=== PATIENT | male | born 1935 | race Caucasian/White ===

== ENCOUNTER → 2022-07-07 13:24 | Outpatient (CLI) | payer MEDICARE, SELFPAY ==
--- NOTE | 2022-07-07 13:30 | XR_ITS ---
FINAL REPORT CLINICAL HISTORY: ankle pain FINDINGS: Left ankle Two views were obtained. There is no acute fracture or dislocation. There are mild degenerative changes. Small calcaneal spurs are identified. There is vascular calcification IMPRESSION: Degenerative and chronic appearing findings. Reviewed, Interpreted and Dictated by Montez Tucker III, MD Transcribed by Cleo Angel Authenticated and [facility]
== END ==
PROVIDERS: PCP Family Medicine; Visit Provider Family Medicine
DX: M25.572 Pain in left ankle and joints of left foot (principal)
CPT/HCPCS: 73600

== ENCOUNTER 2022-08-05 11:47 | Day surgery (SDC) | payer MEDICARE, SELFPAY ==
[2022-07-15 15:25] VITALS: BMI 25.3
[2022-08-05 13:03] VITALS: BP 176/76; PULSE 76; RESP 18; TEMP 36.4; O2SAT 97
[2022-08-05 13:33] VITALS: O2SAT 97
--- NOTE | 2022-08-05 13:34 | P.PN_ITS ---
[facility] Disclaimer: The information contained in this section may have been updated after the patient was seen, as this information can be updated by other users. Medical History Hypertension Surgical History H/O shoulder surgery History of colonoscopy Family History Mother Diabetes Brother Diabetes Sister Diabetes Social History Smoking Status: Never smoker alcohol intake: never substance use type: denies use current occupational status: retired Travel in the last 8 weeks: None household members: none housing: house lives independently: Yes marital status: education level: college correction: No caffeine: Yes special elmer needs: No agree to transfusion: No do you feel safe at home: Yes victim of physical abuse: No victim of emotional abuse: No victim of sexual abuse: No would you like helpful sources: No [facility] Anesthesia Checklist Patient Identification Patient Identification: Verbal (Name & ) Structural Data Admitted From: Home Planned Operative Procedure/s: colonoscopy Consent for Planned Operative Procedure(s) Verified: Yes Airway Assessment C-Spine Mobility Assessed: Yes TMJ Mobility Assessed: Yes Dentition: Good Dentition Neurological Assessment Level of Consciousness: Awake, Alert and Appropriate Anesthesia Plan Anesthesia Risk discussed: Yes Anesthesia Plan: Verified ASA Class: II Anesthesia Type: MAC
--- NOTE | 2022-08-05 13:54 | HMH.SCOPE ---
Procedure: Date: 08/05/22 Patient Date of :: 1935 Procedure Performed:: Screening colonoscopy Indications:: Screening for colorectal cancer Performing Provider:: Judi Calixto MD Referring Provider:: Dada Chavez MD Sedation:: Propofol Procedure:: After placing the patient in the left lateral decubitus position, the colonoscopy was gently inserted into the rectum and under direct visualization advanced to the cecum which was identified by transillumination in the right lower quadrant, identification of the ileocecal valve, appendiceal orifice, and cecal strap. Color, texture, mucosa, and anatomy of the colon were carefully examined with the scope. Findings:: Anal canal: normal Rectum: normal, internal hemorrhoids Sigmoid colon: normal without polyps or inflammatory changes, few diverticulosis Descending colon: normal without polyps or inflammatory changes Splenic flexure: normal Transverse colon: normal without polyps or inflammatory changes Hepatic flexure: normal Ascending colon: normal without polyps or inflammatory changes Cecum: normal Terminal ileum: not visualized Impression: Few sigmoid diverticulosis and internal hemorrhoids, otherwise Normal exam Recommendations:: No further screening colonoscopy recommended due to age Complications:: None Estimated blood obtained (mL): 0
[2022-08-05 13:55] VITALS: BP 103/56; PULSE 78; RESP 14; O2SAT 98
[2022-08-05 14:05] VITALS: BP 103/55; PULSE 74; RESP 14; O2SAT 94
[2022-08-05 14:15] VITALS: BP 112/68; PULSE 73; RESP 15; O2SAT 95
[2022-08-05 14:25] VITALS: BP 130/70; PULSE 75; RESP 16; TEMP 36.5; O2SAT 95
--- NOTE | 2022-08-06 08:50 | EXP.ANES.CKL ---
[facility] Disclaimer: The information contained in this section may have been updated after the patient was seen, as this information can be updated by other users. Medical History Hypertension Surgical History H/O shoulder surgery History of colonoscopy Family History Mother Diabetes Brother Diabetes Sister Diabetes Social History Smoking Status: Never smoker alcohol intake: never substance use type: denies use current occupational status: retired Travel in the last 8 weeks: None household members: none housing: house lives independently: Yes marital status: education level: college alf: No caffeine: Yes special elmer needs: No agree to transfusion: No do you feel safe at home: Yes victim of physical abuse: No victim of emotional abuse: No victim of sexual abuse: No would you like helpful sources: No [facility] Anesthesia Checklist Patient Identification Patient Identification: Verbal (Name & ) Structural Data Admitted From: Inpatient Planned Operative Procedure/s: bronchoscopy Consent for Planned Operative Procedure(s) Verified: Yes Airway Assessment C-Spine Mobility Assessed: Yes TMJ Mobility Assessed: Yes Dentition: Poor Dentition Neurological Assessment Level of Consciousness: Awake, Alert and Appropriate Anesthesia Plan Anesthesia Risk discussed: Yes Anesthesia Plan: Verified ASA Class: III Anesthesia Type: General
== END 2022-08-05 14:30 | disposition home or self-care (01) ==
PROVIDERS: PCP Family Medicine; Visit Provider Internal Medicine Gastroenterology
PROC: 0DJD8ZZ Inspection of Lower Intestinal Tract, Via Natural or Artificial Opening Endoscopic (ICD-10-PCS; CPT 45378; principal; 2022-08-05 13:30)
DX: Z12.11 Encounter for screening for malignant neoplasm of colon (principal); K64.8 Other hemorrhoids; K57.30 Diverticulosis of large intestine without perforation or abscess without bleeding; Z79.899 Other long term (current) drug therapy
CPT/HCPCS: G0105

== ENCOUNTER → 2022-11-04 13:50 | Outpatient (CLI) | payer MEDICARE, SELFPAY ==
--- NOTE | 2022-11-04 13:56 | XR_ITS ---
FINAL REPORT CLINICAL HISTORY: lt foot pain COMPARISON: None FINDINGS: LEFT FOOT Three views of the left foot demonstrate no acute fracture or dislocation. The visualized joint spaces are normally aligned. The soft tissues are unremarkable. A small plantar calcaneal spur is identified. IMPRESSION: No acute bony abnormality. Reviewed, Interpreted and Dictated by Alfonso Darnell MD Transcribed by Beatris Ferrell Authenticated and [facility]
--- NOTE | 2022-11-04 13:56 | XR_ITS ---
FINAL REPORT CLINICAL HISTORY: lt knee pain COMPARISON: None FINDINGS: LEFT KNEE 3 views of the left knee were obtained. There is no acute fracture or dislocation. There is marked narrowing of the medial compartment of the knee along with subchondral sclerosis present. There is a small lateral patellar spur identified. Visualized joint spaces are normally aligned. Soft tissues are unremarkable. IMPRESSION: No acute bony abnormality. Degenerative change in the medial compartment as described above. Reviewed, Interpreted and Dictated by Alfonso Darnell MD Transcribed by Beatris Ferrell Authenticated and [facility]
== END ==
PROVIDERS: PCP Family Medicine; Visit Provider Orthopaedic Surgery
DX: M77.32 Calcaneal spur, left foot (principal); M79.672 Pain in left foot; M25.562 Pain in left knee
CPT/HCPCS: 73562; 73630

== ENCOUNTER 2023-06-28 22:15 | Outpatient (CLI) | payer MEDICARE, SELFPAY ==
[2023-06-28 16:22] LABS: Basophils % 0.3 % (0.1-2.0); Eosinophils % 0.4 % (0.1-12.0); Hematocrit 39.4 % (42.0-52.0); Hemoglobin 12.8 g/dL (14.1-18.0); Lymphocytes # 1.1 K/mm3 (0.7-4.5); Lymphocytes % 25.7 % (10-50); Mean Corpuscular HGB Conc 32.4 g/dL (31.8-35.4); Mean Corpuscular Hemoglobin 31.9 pg (27.0-31.2); Mean Corpuscular Volume 98.3 fl (80-94); Mean Platelet Volume 10.2 fl (7.4-10.4); Monocytes # 0.4 K/mm3 (0.1-1.0); Monocytes % 8.9 % (1.7-9.3); Neutrophils # 2.7 K/mm3 (1.8-7.8); Neutrophils % 64.7 % (37.0-80.0); Platelet Count 162 K/mm3 (142-424); Red Blood Count 4.01 M/mm3 (4.60-6.20); Red Cell Distribution Width 13.5 % (11.5-17.5); White Blood Count 4.2 K/mm3 (4.8-10.8)
[2023-06-28 16:33] LABS: Chloride 104 mmol/L (98-107); Potassium 4.9 mmoL/L (3.5-5.1); Sodium 140 mmol/L (136-145)
[2023-06-28 16:36] LABS: Alanine Aminotransferase 19 U/L (12-78); Albumin Level 3.8 g/dl (3.5-5.0); Albumin/Globulin Ratio 1.2 (1.1-1.8); Alkaline Phosphatase 104 U/L (38-126); Anion Gap 9.9 mEq/L (5-15); Aspartate Amino Transferase 31 U/L (17-59); Bilirubin,Total 0.7 mg/dl (0.2-1.3); Blood Urea Nitrogen 14 mg/dl (9-20); Calcium 8.6 mg/dl (8.4-10.2); Carbon Dioxide 31 mmol/L (22.0-30.0); Cholesterol 139 mg/dl (140-200); Estimated Glomerular Filt Rate 63 ml/min (>60); GFR (African American) 76 ML/MIN (>60); Globulin 3.1 g/dL (1.3-3.2); Glucose 92 mg/dl (74-100); Total Protein,Serum 6.9 g/dl (6.3-8.2); Triglycerides 66 mg/dl (30-150); VLDL Cholesterol 13 mg/dL (0-40)
[2023-06-28 16:37] LABS: Chol/HDL Ratio 3.2 (1-3.5); HDL Cholesterol 43 mg/dl (40-60)
[2023-06-28 16:50] LABS: Direct LDL Cholesterol 78.06 mg/dL (100-129)
[2023-06-28 17:08] LABS: Thyroid Stimulating Hormone 3.28 uIU/mL (0.465-4.68)
== END 2023-06-28 23:59 ==
LOC: LAB.DROPOF 22:15
PROVIDERS: PCP Family Medicine; Visit Provider Family Medicine
DX: I10 Essential (primary) hypertension (principal); R53.83 Other fatigue; Z00.00 Encounter for general adult medical examination without abnormal findings
CPT/HCPCS: 80053; 80061; 84443; 85025

== ENCOUNTER 2023-10-11 14:30 | Outpatient (CLI) | payer MEDICARE, SELFPAY ==
[2023-10-11 15:22] LABS: Basophils % 0.4 % (0.1-2.0); Eosinophils % 0.3 % (0.1-12.0); Hematocrit 36.9 % (42.0-52.0); Hemoglobin 12.2 g/dL (14.1-18.0); Lymphocytes # 1.1 K/mm3 (0.7-4.5); Mean Corpuscular HGB Conc 33.1 g/dL (31.8-35.4); Mean Corpuscular Hemoglobin 32.7 pg (27.0-31.2); Mean Platelet Volume 9.5 fl (7.4-10.4); Monocytes # 0.7 K/mm3 (0.1-1.0); Monocytes % 8.3 % (1.7-9.3); Platelet Count 196 K/mm3 (142-424); Red Blood Count 3.72 M/mm3 (4.60-6.20); Red Cell Distribution Width 13.6 % (11.5-17.5); White Blood Count 7.9 K/mm3 (4.8-10.8)
[2023-10-11 15:52] LABS: Alanine Aminotransferase 18 U/L (12-78); Albumin Level 4.1 g/dl (3.5-5.0); Alkaline Phosphatase 103 U/L (38-126); Anion Gap 13.4 mEq/L (5-15); Aspartate Amino Transferase 31 U/L (17-59); Bilirubin,Direct 0.2 mg/dl (0.0-0.4); Bilirubin,Indirect 0.2 mg/dL (0.0-0.9); Bilirubin,Total 0.4 mg/dl (0.2-1.3); Bilirubin,Unconjugated 0.3 mg/dL (0.0-1.1); Blood Urea Nitrogen 24 mg/dl (9-20); Calcium 9.2 mg/dl (8.4-10.2); Carbon Dioxide 30 mmol/L (22.0-30.0); Chloride 100 mmol/L (98-107); Chol/HDL Ratio 2.9 (1-3.5); Cholesterol 163 mg/dl (140-200); Estimated Glomerular Filt Rate 48 ml/min (>60); GFR (African American) 58 ML/MIN (>60); Glucose 99 mg/dl (74-100); HDL Cholesterol 57 mg/dl (40-60); Potassium 4.4 mmoL/L (3.5-5.1); Sodium 139 mmol/L (136-145); Total Protein,Serum 7.1 g/dl (6.3-8.2); Triglycerides 100 mg/dl (30-150); VLDL Cholesterol 20 mg/dL (0-40)
[2023-10-11 16:02] LABS: NT Pro Brain Natriuretic Pep. 923 pg/mL (0-450)
[2023-10-11 16:03] LABS: Direct LDL Cholesterol 93.08 mg/dL (100-129)
[2023-10-11 16:11] LABS: Free T4 (Free Thyroxine) 0.84 ng/dl (0.78-2.19)
== END 2023-10-11 23:59 | disposition home or self-care (01) ==
PROVIDERS: PCP Family Medicine; Visit Provider Internal Medicine
DX: R06.09 Other forms of dyspnea (principal); I10 Essential (primary) hypertension; R53.83 Other fatigue
CPT/HCPCS: 36415; 80048; 80061; 80076; 83880; 84439; 84443; 85025

== ENCOUNTER 2023-10-20 07:51 | Outpatient (CLI) | payer MEDICARE, SELFPAY ==
[2023-10-20 08:49] LABS: Anion Gap 13.1 mEq/L (5-15); Blood Urea Nitrogen 19 mg/dl (9-20); Calcium 9.4 mg/dl (8.4-10.2); Carbon Dioxide 29 mmol/L (22.0-30.0); Chloride 102 mmol/L (98-107); Estimated Glomerular Filt Rate 57 ml/min (>60); GFR (African American) 69 ML/MIN (>60); Glucose 99 mg/dl (74-100); Potassium 4.1 mmoL/L (3.5-5.1); Sodium 140 mmol/L (136-145)
== END 2023-10-20 23:59 | disposition home or self-care (01) ==
LOC: LAB 07:52
PROVIDERS: PCP Family Medicine; Visit Provider Physician Assistant
DX: N28.9 Disorder of kidney and ureter, unspecified (principal)
CPT/HCPCS: 36415; 80048

== ENCOUNTER 2023-12-21 12:12 | Outpatient (CLI) | payer MEDICARE, OTHER, SELFPAY ==
[2023-12-21 16:23] LABS: Microscopic, Urine URINE MICROSCOPIC (MICROSCOPIC)
[2023-12-21 17:44] LABS: Appearance,Urine CLEAR (Clear); Bilirubin,Urine Negative (Negative); Blood, Urine Negative (Negative); Color,Urine YELLOW (Yellow); Glucose,Urine (UA) Negative (Negative); Ketones,Urine Negative (Negative); Leukocyte Esterase,Urine Negative (Negative); Nitrate,Urine Negative (Negative); PH,Urine 5.5 (5.0-8.5); Protein,Urine Negative (Negative); Specific Gravity, Urine 1.025 (1.005-1.030)
[2023-12-21 18:01] LABS: Bacteria,Urine Trace /lpf; RBC,Urine Occasional #/hpf (0-3); WBC,Urine Occasional #/hpf (0-3)
[2023-12-21 18:02] LABS: Squamous Epithelial Cell,Urine Occasional #/hpf (0-5)
== END 2023-12-21 23:59 | disposition home or self-care (01) ==
LOC: LAB.DROPOF 12-22 12:12
PROVIDERS: PCP Family Medicine; Visit Provider Family Medicine
DX: R39.9 Unspecified symptoms and signs involving the genitourinary system (principal)
CPT/HCPCS: 81001; 87086; 87088; 87186

== ENCOUNTER 2024-01-31 11:00 | Outpatient (CLI) | payer MEDICARE, OTHER, SELFPAY | END 2024-01-31 23:59 | disposition home or self-care (01) | LOC: LAB.DROPOF 02-01 09:41 | PROVIDERS: PCP Family Medicine; Visit Provider Family Medicine | DX: R39.9 Unspecified symptoms and signs involving the genitourinary system (principal) | CPT/HCPCS: 87086 ==

== ENCOUNTER 2024-02-12 12:54 | Emergency (ER) | payer MEDICARE, OTHER, SELFPAY ==
[2024-02-12 12:56] VITALS: BP 133/83; PULSE 94; RESP 16; TEMP 36.6; O2SAT 98; BMI 24.4
--- NOTE | 2024-02-12 12:58 | HMH.EDGENADL ---
Discharge Plan Disposition Patient Disposition: Home, Self-Care Condition: Good Prescriptions Prescriptions: No Action multivitamin Tablet 1 tab PO DAILY hydrochlorothiazide 25 mg tablet 25 mg PO DAILY 90 Days Qty: 90 0RF Referrals Follow up/Referrals: Dada Chavez MD [Primary Care Provider] - See instructions Activity Restrictions/Add. Instructions Additional Instructions/Restrictions: As we discussed, given that your pain has improved at this time and your labs did not show any evidence of infection of your gallbladder or something for which you would need to be admitted to the hospital, you are stable for discharge at this time. Please call the general surgeon, Dr. Aleman's, office on Tuesday to discuss next steps, you may need an elective surgery on your gallbladder. Please return with any new or worsening symptoms Clinical Impressions Clinical Impression: Symptomatic cholelithiasis Instructions Patient Instructions: DI for Acute Abdominal Pain Print Language Print Language: Slovenian Discharge ED Provider: Carlos Shukla Adult HPI General Chief complaint: Abdominal Pain Stated complaint: abd pain Time Seen by Provider: 02/12/24 12:58 History of Present Illness HPI narrative: The patient presents with recurrent episodes of abdominal pain, particularly after eating. The pain is described as a solid ache, with severity ranging from 6 to 9 out of 10. The pain is located on the right side of the abdomen. He has a history of gallbladder issues and was previously seen by a doctor. He denies taking any medication for the pain today. He also reports mild burning during urination but has not received any treatment for this issue. He has an appointment with a specialist scheduled for April 04. He has a history of hypertension and is currently taking a blood pressure medication and a daily vitamin. He has no known liver issues or kidney cysts. He also reports occasional low back pain and a previous injury to the left leg. The pain started after eating lunch around 11 o'clock and became noticeable around 12. He initially left the clinic but turned around and came back due to the pain. The pain has somewhat subsided since lying down. He also mentions having very few health problems in general and reports a history of receiving care at the [facility] before switching to the current provider. He has a scar from a previous lung procedure. Please note that above description of symptoms, in this electronic medical record under categorization of recalled from ER triage doctor by RN are reflective of an initial nursing assessment, however, is not reflective of my full history and physical exam that was personally taken and clarified. Consequentially, this preceding description of symptoms, which may include the patient's categorized chief complaint in the EMR, do not reflect my personal clinical impression, and the ultimate description of history of present illness and patient stated complaints should be deferred to this section of the note. Unless stated otherwise or congruent with this section of the note, additional signs, symptoms, or incongruence should be interpreted as inaccurate with my clinical impression. Related Data Home Medications ?Medication ?Instructions ?Recorded ?Confirmed multivitamin 1 tab PO DAILY Supplement 07/06/22 01/31/24 Previous Rx's ?Medication ?Instructions ?Recorded hydrochlorothiazide 25 mg tablet 25 mg PO DAILY htn 90 days #90 tabs 12/26/23 Allergies Allergy/AdvReac Type Severity Reaction Status Date / Time No Known Allergies Allergy Verified 01/31/24 10:55 [facility] Disclaimer: The information contained in this section may have been updated after the patient was seen, as this information can be updated by other users. Medical History Renal insufficiency Hypertension Surgical History History of colonoscopy H/O shoulder surgery Family History Mother Diabetes Brother Diabetes Sister Diabetes Social History Smoking Status: Never smoker alcohol intake: never substance use type: denies use current occupational status: retired Travel in the last 8 weeks: None household members: none housing: house lives independently: Yes marital status: education level: college chcf: No caffeine: Yes special elmer needs: No agree to transfusion: No do you feel safe at home: Yes victim of physical abuse: No victim of emotional abuse: No victim of sexual abuse: No would you like helpful sources: No ROS Obtained: Yes other As per HPI Physical Exam General General appearance: alert and in no apparent distress Head Head exam: atraumatic and normocephalic Eye Eye exam: Present normal appearance Neck Neck exam: Present normal inspection Chest Chest inspection: Present normal inspection and symmetric chest wall rise Respiratory Respiratory exam: Present normal lung sounds bilaterally; Absent respiratory distress Cardiovascular Cardiovascular exam: Present regular rate and normal rhythm Abdominal Exam Abdominal exam: Present soft Neurological Exam Neurological exam: Present alert and oriented X3 Psychiatric Psychiatric exam: Present normal affect and normal mood Skin Skin exam: Present warm and dry Medical Decision Making Medical Records Medical records reviewed: Yes I reviewed the patient's medical records. [place] Inquiry Pt receiving controlled substance: No Vital Signs: 02/12/24 12:56 02/12/24 14:15 Temperature 97.8 F 98.0 F Temperature Source Oral Oral Pulse Rate 90 Pulse Rate [Right] 94 H Respiratory Rate 16 18 Blood Pressure 136/80 Blood Pressure [Left Arm] 133/83 Blood Pressure Mean [Left Arm] 99 Blood Pressure Source Automatic Cuff Blood Pressure Position Sitting 02 Sat by Pulse Oximetry 98 Oxygen Delivery Method Room Air Room Air Lab Data Lab Results 02/12/24 13:15: WBC 3.7 L, RBC 3.64 L, Hgb 11.6 L, Hct 36.7 L, MCV 100.9 H, MCH 31.8 H, MCHC 31.5 L, RDW 14.2, Plt Count 205, MPV 9.6, Neut % (Auto) 65.7, Lymph % (Auto) 24.9, [place] % (Auto) 8.2, Eos % (Auto) 0.3, Baso % (Auto) 0.9, Neut # (Auto) 2.4, Lymph # (Auto) 0.9, [place] # (Auto) 0.3, Eos # (Auto) 0.0, Baso # (Auto) 0.0, Sodium 137, Potassium 4.0, Chloride 105, Carbon Dioxide 28, Anion Gap 8.0, BUN 17, Creatinine 1.20, Estimated Creat Clear 48, Estimated GFR 57 L, Est GFR ( Amer) 69, Glucose 116 H, Calcium 8.8, Total Bilirubin 0.8, AST 134 H, ALT 46, Alkaline Phosphatase 148 H, Total Protein 7.4, Albumin 3.9, Globulin 3.5 H, Albumin/Globulin Ratio 1.1, Lipase 73 02/12/24 13:15 02/12/24 13:15 Orders (Tests/Meds): ED MEDICATIONS Discontinued Medications Generic Name Dose Route Start Last Admin Trade Name Freq PRN Reason Stop Dose Admin Iopamidol 75 ml 02/12/24 15:15 02/12/24 15:16 Iopamidol-370 (76%);100ml Bottle IV 02/12/24 15:16 75 ml ONCE ONE Administration Sodium Chloride 10 ml 02/12/24 15:15 02/12/24 15:16 Sodium Chloride 0.9% 10ml Syr (Rad Only) IV 02/12/24 15:16 10 ml ONCE ONE Administration ORDERS Category Date Time Status CT abdomen pelvis w con Stat Cat Scan 02/12/24 13:36 Completed CBC w/Auto Diff [Complete Blood Count Auto Diff] Stat Lab 02/12/24 13:15 Completed CMP [Comprehensive Metabolic Panel] Stat Lab 02/12/24 13:15 Completed Lipase Stat Lab 02/12/24 13:15 Completed Medical Decision Narrative: Patient with history and exam per above presenting for evaluation of reported right upper quadrant abdominal pain, resolved Diagnoses considered include symptomatic cholelithiasis, cholecystitis, ascending cholangitis, PUD, perforation, among others ED workup and treatment included: ED MEDICATIONS Discontinued Medications Generic Name Dose Route Start Last Admin Trade Name Freq PRN Reason Stop Dose Admin Iopamidol 75 ml 02/12/24 15:15 02/12/24 15:16 Iopamidol-370 (76%);100ml Bottle IV 02/12/24 15:16 75 ml ONCE ONE Administration Sodium Chloride 10 ml 02/12/24 15:15 02/12/24 15:16 Sodium Chloride 0.9% 10ml Syr (Rad Only) IV 02/12/24 15:16 10 ml ONCE ONE Administration ORDERS Category Date Time Status CT abdomen pelvis w con Stat Cat Scan 02/12/24 13:36 Completed CBC w/Auto Diff [Complete Blood Count Auto Diff] Stat Lab 02/12/24 13:15 Completed CMP [Comprehensive Metabolic Panel] Stat Lab 02/12/24 13:15 Completed Lipase Stat Lab 02/12/24 13:15 Completed Labs were independently interpreted by me, significant for no acute findings Imaging was independently visualized and interpreted by me, significant for no acute surgical pathology Please refer to radiology report for full details. My clinical impression at this time is most consistent with symptomatic cholelithiasis I discussed my clinical impression with patient and answered all questions. At this time, the evidence for any other entities in the differential is insufficient to warrant any further testing or ED observation. This was explained to the patient. The patient was advised that persistent or worsening symptoms require further evaluation. Critical Care Critical Care Time Critical Care Time: No
--- NOTE | 2024-02-12 13:36 | CT_ITS ---
PROCEDURE INFORMATION: Exam: CT Abdomen And Pelvis With Contrast Exam date and time: 02/12/2024 3:15 PM Age: 88 years old Clinical indication: Abdominal pain; Additional info: R flank/ruq pain, HX cholelithiasis, urolithiasis TECHNIQUE: Imaging protocol: Computed tomography of the abdomen and pelvis with contrast. Radiation optimization: All CT scans at this facility use at least one of these dose optimization techniques: automated exposure control; mA and/or kV adjustment per patient size (includes targeted exams where dose is matched to clinical indication); or iterative reconstruction. Contrast material: ISOVUE; Contrast volume: 75 ml; Contrast route: IV; COMPARISON: CT ANGIO ABDOMEN PELVIS 11/05/2023 6:31 PM FINDINGS: Lungs: Continued bronchiectasis lateral left lower lobe with decreased nodularity. Largest nodule decreased in size, now measuring 8 mm. Stable bronchiectasis in the right middle lobe and lingula. Liver: Small hepatic cysts. Gallbladder and biliary ducts: Gallbladder collapsed with adjacent inflammatory changes. Limited evaluation for wall thickening. No radiopaque gallstone identified. No distension of the common bile duct. Pancreas: Normal. No ductal dilation. Spleen: Normal. No splenomegaly. Adrenal glands: Normal. No mass. Kidneys and ureters: No hydronephrosis. No hydroureter. Nonobstructing ureteral calculi within the distal left ureterovesical junction, demonstrating slight progression since previous study. Stable appearance of mildly complex cortical renal cyst superior pole right kidney measuring 6.6 x 6.8 cm, with coarse mural calcification. Stable smaller left cortical renal cysts. Stomach and bowel: Unremarkable. No obstruction. No mucosal thickening. Appendix: No evidence of appendicitis. Intraperitoneal space: Unremarkable. No free air. No significant fluid collection. Vasculature: Unremarkable. No abdominal aortic aneurysm. Lymph nodes: Unremarkable. No enlarged lymph nodes. Urinary bladder: Unremarkable as visualized. Reproductive: Unremarkable as visualized. Bones/joints: Unremarkable. No acute fracture. Soft tissues: Unremarkable. IMPRESSION: 1. Gallbladder collapsed with adjacent inflammatory changes. Limited evaluation for wall thickening. No radiopaque gallstone identified. No distension of the common bile duct. Additional workup with ultrasound recommended to exclude cholecystitis. 2. Continued bronchiectasis lateral left lower lobe with decreased nodularity. Largest nodule decreased in size, now measuring 8 mm. 3. No obstructive uropathy. Nonobstructing ureteral calculi within the distal left ureterovesical junction, demonstrating slight progression since previous study.
[2024-02-12 13:45] LABS: Basophils % 0.9 % (0.1-2.0); Eosinophils % 0.3 % (0.1-12.0); Hematocrit 36.7 % (42.0-52.0); Hemoglobin 11.6 g/dL (14.1-18.0); Lymphocytes # 0.9 K/mm3 (0.7-4.5); Lymphocytes % 24.9 % (10-50); Mean Corpuscular HGB Conc 31.5 g/dL (31.8-35.4); Mean Corpuscular Hemoglobin 31.8 pg (27.0-31.2); Mean Corpuscular Volume 100.9 fl (80-94); Mean Platelet Volume 9.6 fl (7.4-10.4); Monocytes # 0.3 K/mm3 (0.1-1.0); Monocytes % 8.2 % (1.7-9.3); Neutrophils # 2.4 K/mm3 (1.8-7.8); Neutrophils % 65.7 % (37.0-80.0); Platelet Count 205 K/mm3 (142-424); Red Blood Count 3.64 M/mm3 (4.60-6.20); Red Cell Distribution Width 14.2 % (11.5-17.5); White Blood Count 3.7 K/mm3 (4.8-10.8)
[2024-02-12 13:48] LABS: Albumin Level 3.9 g/dl (3.5-5.0); Chloride 105 mmol/L (98-107); Sodium 137 mmol/L (136-145)
[2024-02-12 13:51] LABS: Alanine Aminotransferase 46 U/L (12-78); Albumin/Globulin Ratio 1.1 (1.1-1.8); Alkaline Phosphatase 148 U/L (38-126); Aspartate Amino Transferase 134 U/L (17-59); Bilirubin,Total 0.8 mg/dl (0.2-1.3); Blood Urea Nitrogen 17 mg/dl (9-20); Carbon Dioxide 28 mmol/L (22.0-30.0); Creatinine Clearance Estimated 48 mL/min (50-200); Estimated Glomerular Filt Rate 57 ml/min (>60); GFR (African American) 69 ML/MIN (>60); Globulin 3.5 g/dL (1.3-3.2); Lipase 73 U/L (23-300); Total Protein,Serum 7.4 g/dl (6.3-8.2)
[2024-02-12 13:52] LABS: Calcium 8.8 mg/dl (8.4-10.2); Glucose 116 mg/dl (74-100)
[2024-02-12 14:15] VITALS: BP 136/80; PULSE 90; RESP 18; TEMP 36.7; O2SAT 98
--- NOTE | 2024-02-12 15:03 | PC.NURSE ---
PT UPDATED AT THIS TIME ON POC
--- NOTE | 2024-02-12 15:08 | PC.NURSE ---
PT TO CT
[2024-02-12] MEDS: IOPAMIDOL-370 (76%);100ML BOTTLE 75 ML IV (15:16)
[2024-02-12] MEDS: SODIUM CHLORIDE 0.9% 10ML SYR (RAD ONLY) 10 ML IV (15:16)
== END 2024-02-12 16:15 | disposition home or self-care (01) ==
PROVIDERS: Emergency Provider Emergency Medicine; PCP Family Medicine
DX: R10.11 Right upper quadrant pain (principal); K80.20 Calculus of gallbladder without cholecystitis without obstruction; R30.0 Dysuria; I10 Essential (primary) hypertension
CPT/HCPCS: 74177; 80053; 83690; 85025; 99284; Q9967

== ENCOUNTER 2024-03-14 06:02 | Outpatient (CLI) | payer MEDICARE, SELFPAY ==
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
--- NOTE | 2024-03-14 06:07 | NM_ITS ---
APPROVED REPORT Exam: Nuclear Stress Test Indication: htn, c.p., pre-op Patient Location: Outpatient Stress Tech: Rachel Angie NM Tech:CELINE Hernandez RT (R)(N)(M) Ht: 6 ft 1 in Wt: 173 lbs HR: 75 bpm BP: 174/84 mmHg BSA: 2.02 m2 TID: 1.20 BMI: 22.8 History: htn, c.p., pre-op Procedure: Patient received 0.4 mg of intravenous Lexiscan, resting heart rate 75 bpm, resting blood pressure 174/84 mmHg, with Lexiscan maximum heart rate achieved was 94 bpm which is % of the maximum predicted heart rate and blood pressure was 150/79 mmHg. With Lexiscan, patient denied any complaint of chest pain. Cardiac Stress and Resting SPECT Images: Cardiac Stress and Resting SPECT images were obtained using technetium 99m Myoview 31.4 mCi stress and 10.64 mCi at rest. Resting and stress imaging in supine and prone positions demonstrate a large sized, moderate, partially reversible perfusion defect in the inferior LV wall from the base and extending distally towards the LV apex. There is reversibility noted in the distal segments including the inferoapical region. There is increase in transit ischemic dilatation ratio (TID 1.20), suggestive of possible multivessel disease or balanced ischemia. Gated imaging demonstrates low-normal global LV systolic function. There is mild hypokinesis of the basal to mid inferior LV ríos. LVEF is calculated at 52%. Conclusion: Large sized, moderate, partially reversible perfusion defect in the inferior LV wall from the base and extending distally towards the LV apex. There is reversibility noted in the distal segments including the inferoapical region. There is increase in transit ischemic dilatation ratio (TID 1.20), suggestive of possible multivessel disease or balanced ischemia. Gated imaging demonstrates low-normal global LV systolic function. There is mild hypokinesis of the basal to mid inferior LV ríos. LVEF is calculated at 52%. Electronically signed by : Carmencita Jesus MD 03/14/2024 11:21:50
[2024-03-14] MEDS: SODIUM CHLORIDE 0.9% 10ML SYR (RAD ONLY) 10 ML IV ×2 (06:30→08:10)
--- NOTE | 2024-03-14 07:20 | CA_ITS ---
APPROVED REPORT EXAM: Comprehensive 2D, Doppler, and color-flow Echocardiogram Viscosity Tester: Veronica Yoo, SAMARA, RVS Ht: 6 ft 0 in Wt: 181lbs BSA: 2.04 BP: 167/71 mmHg Indications: Pre-op risk assessment, cholecystectomy, HTN, Murmur 2D Dimensions IVSd 0.97 cm LVEF (Visual) 63.20 % PWd 1.07 cm LA Volume 61.10 mL LVDd 5.08 cm LA Volume Index 29.20 mL/m2 (M/F) 16-34 LVDs 3.33 cm Left Atrium 3.43 cm M-Mode Dimensions RVDd 2.55 cm (0.9-2.6) LA Diam 2.36 cm (1.9-4.0) LVDd 4.33 cm (3.5-5.7) LVDs 3.08 cm (3.5-5.7) IVSd 1.03 cm (0.6-1.1) PWd 1.06 cm (0.6-1.1) EF (Teich) 55.80% EPSs 0.88 cm FS 28.90% EDV (Teich) 84.40 mL TAPSE 2.91 (<1.7) ESV (Teich) 37.30 mL LV Diastology E Decel Time 253 (160-240 msec) E/A Ratio 1.14 MED A' 10.60 cm/s LAT A' 8.60 cm/s Aortic Valve PREMA Index 0.54 cm2/m2 AoV Peak Chato. 255.0 (50-130 cm/s) AO Peak GR. 26.10 mmHg AO Mean GR. 15.50 (<5 mmHg) AO VTI 63.0 (18-25 cm) PREMA (VTI) 1.12 (2.5-4.5 cm2) Mitral Valve MV A Velocity 97.0 (40-130 cm/s) E/A Ratio 1.14 MV Mean Gr. 2.50 (<2mmHg) MV PHT 73.0 ms Tricuspid Valve TR P. Velocity 333.00 cm/s RAP Estimate 10.00 mmHg RVSP 54.40 mmHg Left Ventricle The left ventricle is normal size. The left ventricular systolic function is normal. The left ventricular ejection fraction is within the normal range. There is increased LV wall thickness. There is normal LV segmental wall motion. Grade 2 diastolic dysfunction. LVEF is 55%. Right Ventricle The right ventricle is normal size. The right ventricular systolic function is normal. Atria The left atrium size is normal. The right atrium size is normal. There is no Doppler evidence of interatrial shunt. Aortic Valve The aortic valve is mildly thickened. Mild to moderate aortic stenosis. PREMA by continuity equation is 1.3 cm???. Peak velocity 2.7 m/s. Mean AV gradient 16 mmHg. Max AV gradient 25 mmHg. Trace aortic regurgitation. Mitral Valve Possible bileaflet prolapse of the MV leaflets. The mitral valve leaflets are mildly thickened. No evidence of mitral valve stenosis. Mild mitral regurgitation. Tricuspid Valve The tricuspid valve leaflets are thin and pliable. Mild tricuspid regurgitation. RVSP is 40-45 mmHg. Pulmonic Valve The pulmonary valve is normal in structure. Trace pulmonic regurgitation. Great Vessels The aortic root is normal in size. The ascending aorta is not well-visualized. IVC is normal in size and collapses >50% with inspiration. Pericardium There is no pericardial effusion. Other Information Study Quality: Fair Conclusion Normal biventricular systolic function. Grade 2 diastolic dysfunction. The mild to moderate (mild to moderate aortic stenosis. PREMA by continuity equation is 1.3 cm???. Peak velocity 2.7 m/s. Mean AV gradient 16 mmHg. Max AV gradient 25 mmHg). Possible bileaflet prolapse of the MV leaflets. Mild MR. Mild TR. RVSP is 40-45 mmHg. In the setting of grade 2 diastolic dysfunction, AV stenosis, and elevated RVSP, clinical correlation is required for preop risk assessment. Electronically signed by : Carmencita Jesus MD 03/19/2024 23:08:37
[2024-03-14] MEDS: REGADENOSON 0.4MG/5ML SYRINGE 0.4 MG IV (08:10)
[2024-03-14] MEDS: ISOTOPE MYOVIEW (PER STUDY) 1 DOSE IV (09:21)
== END 2024-03-14 23:59 | disposition home or self-care (01) ==
LOC: RAD 06:03
PROVIDERS: PCP Family Medicine; Visit Provider Physician Assistant
DX: Z01.810 Encounter for preprocedural cardiovascular examination (principal)
CPT/HCPCS: 78451; 78452; 93017; 93018; 93306; A9502; J2785

== ENCOUNTER 2024-04-05 07:05 | Day surgery (SDC) | payer MEDICARE, SELFPAY ==
[2024-04-05] VITALS (10 sets, daily range): BP systolic 104–175; BP diastolic 56–86; PULSE 54–67; RESP 14–18; TEMP 36.2–43; O2SAT 97–99; BMI 23.6
[2024-04-05] MEDS: LACTATED RINGERS 1000ML 1,000 ML 25 ML IV (07:30)
--- NOTE | 2024-04-05 08:26 | EXP.ANES.CKL ---
[facility] Disclaimer: The information contained in this section may have been updated after the patient was seen, as this information can be updated by other users. Medical History Renal insufficiency Hypertension Surgical History History of colonoscopy H/O shoulder surgery Family History Mother Diabetes Brother Diabetes Sister Diabetes Social History Smoking Status: Never smoker alcohol intake: never substance use type: denies use current occupational status: retired Travel in the last 8 weeks: None household members: none housing: house lives independently: Yes marital status: education level: college penitentiary: No caffeine: Yes special elmer needs: No agree to transfusion: No do you feel safe at home: Yes victim of physical abuse: No victim of emotional abuse: No victim of sexual abuse: No would you like helpful sources: No [facility] Anesthesia Checklist Patient Identification Patient Identification: Arm Band Structural Data Admitted From: Home Planned Operative Procedure/s: Laparoscopic Cholecystectomy Consent for Planned Operative Procedure(s) Verified: Yes Verified Documents: Surgical Consent, History and Physical and Cardiac Clearance NPO Status Verified Time NPO: 00:00 Additional verifications Anesthesia Reactions: No Hx Blood Transfusions: No Airway Assessment Mallampati Score:: Class II C-Spine Mobility Assessed: Yes TMJ Mobility Assessed: Yes Dentition: Good Dentition Neurological Assessment Level of Consciousness: Awake, Alert and Appropriate Anesthesia Plan Anesthesia Risk discussed: Yes Anesthesia Plan: Verified ASA Class: III Anesthesia Type: General
[2024-04-05] MEDS: CEFAZOLIN SODIUM 2 GM in 0.9 % SODIUM CHLORIDE 100 ML IV (09:18)
[2024-04-05] MEDS: LIDOCAINE 1% 20ML MDV 20 ML (09:34)
[2024-04-05] MEDS: SODIUM CHLORIDE IRRIG SOLUTION 3,000 ML 25 ML IR (09:34)
--- NOTE | 2024-04-05 10:59 | P.OP_ITS ---
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 Post-op Diagnosis:: Same Procedure performed:: Laparoscopic cholecystectomy Surgeon:: Juan Aleman MD [employer]STRUCTION[employer] TECHNICIAN:: Ruiz Gallagher Anesthesia: GETA Estimated blood loss (mL): 25 Operative findings:: Profound gallbladder contraction and hardening of gallbladder wall Inflammatory mass to the right lateral margin of the apparent cystic duct and Node of Calot Structure identification of limited secondary to profound inflammation Densely adhered small bowel and stomach to anterior gallbladder margin Possibility of remaining gallbladder tissue (possible partial cholecystectomy) noted Operative note:: After informed consent was obtained, the patient was taken to the operating room and placed in the supine position. General anesthesia was induced and the abdomen was prepped and draped in a sterile fashion. After infiltration with local anesthetic a supraumbilical incision was made. A Veress needle was placed in position. The abdomen was insufflated. A 5 mm optical trocar was placed in position. Under direct visualization, a 12 mm trocar was placed in the subxiphoid position and 2 additional 5 mm trocars were placed in the right upper quadrant. The gallbladder was elevated up and over the liver margin. Profound gallbladder contraction noted. The dome of the gallbladder was not only contracted but hardened . Dissection and tissue identification was exceptionally difficult secondary to the inflammatory changes, as well as, overlying adhered stomach and small bowel. Tapering suggestive of the proximal gallbladder margin/infundibulum was noted. A structure consistent with cystic duct was dissected free from surrounding tissue. 3 clips were placed proximally and transection was made distally with the harmonic bryant. Just to the left of this structure an apparent enlarged lymph node (node of Calot) was noted. A likely inflammatory mass versus remaining gallbladder structure was noted to the right lateral margin of the apparent duct and lymph node. Once again, secondary to overall inflammatory changes precise structural identification was difficult. The decision was made to forego further dissection away from the gallbladder dome secondary to concerns for injury to the biliary tree or other structures. The possibility of remaining gallbladder tissue (possible partial cholecystectomy) noted. Posterior to all the above-stated structures, dissection with harmonic bryant was completed. Endoloops (x 2) were then placed at the margin of the inflammatory mass and transection distal to the site was completed with harmonic bryant. All tissue was placed in a retrieval bag and removed through the subxiphoid trocar site. The right upper quadrant was thoroughly irrigated. No active bleeding or sign of injury was noted. No obvious bile leak was noted. Fascia at the subxiphoid trocar site was reapproximated utilizing the NeoClose device. The remaining trocars were removed. All wounds were irrigated and skin was closed with 4-0 Monocryl in an interrupted mattress fashion to facilitate hemostasis. The patient's anesthetic agents were reversed and extubation was completed prior to transfer to recovery in stable condition. Condition: stable Disposition: PACU Specimens:: Gallbladder Complications:: No immediate
--- NOTE | 2024-04-05 11:12 | EXP.ANES.I ---
[facility] Anesthesia Record Part I Anesthesia Record I Intake, IV Amount: 900 Hydration: Adequate Estimated blood loss (mL): 15 Urine output (mL): 0 Blood Products used (#): none Blood Pressure: 175/80 SaO2: 98 Pulse Rate: 67 Airway Patency: Patent Respiratory Rate: 14 Temperature: 97.4 F Patient is:: Drowsy and Stable Stable to PACU at:: 11:05
[2024-04-05] MEDS: MORPHINE 2MG/ML SYRINGE 1 MG IV (12:30)
--- NOTE | 2024-04-06 08:07 | P.PNANES_ITS ---
[facility] Anesthesia Record Part II Anesthesia Record Part II Discharge Time: 11:35 Destination: Surgical Day Care (OP Surgery) PACU nurse assessment reviewed?: Yes Patient Condition:: Good Anesthesia Complications:: None Swallowing reflex intact?: Yes Airway Patency: Patent Cyanosis?: No Blood Pressure: 124/76 SaO2: 98 Respiratory Rate: 17 Pulse Rate: 61 Temperature: 97.7 F Mental Status: Alert & Oriented Pain level:: 0 Nausea and/or vomitting:: None Intake, IV Amount: 0 Hydration: Adequate
[2024-04-06 08:08] VITALS: BP 124/76; PULSE 61; RESP 17; TEMP 36.5; O2SAT 98
== END 2024-04-05 13:00 | disposition home or self-care (01) ==
PROVIDERS: PCP Family Medicine; Visit Provider Surgery
PROC: 0FT44ZZ Resection of Gallbladder, Percutaneous Endoscopic Approach (ICD-10-PCS; CPT 47562; principal; 2024-04-05 09:30)
DX: K80.12 Calculus of gallbladder with acute and chronic cholecystitis without obstruction (principal)
CPT/HCPCS: 47562; 96374; J0690; J1100; J2270; J2405; J3010; J7120

== ENCOUNTER 2024-04-11 19:47 | Outpatient (CLI) | payer MEDICARE, SELFPAY ==
[2024-04-11 20:14] LABS: Basophils # 0.1 K/mm3 (0-0.2); Basophils % 1.2 % (0.1-2.0); Eosinophils # 0.1 K/mm3 (0.0-0.4); Eosinophils % 1.6 % (0.1-12.0); Hematocrit 34.2 % (42.0-52.0); Hemoglobin 11.5 g/dL (14.1-18.0); Lymphocytes # 0.9 K/mm3 (0.7-4.5); Lymphocytes % 21.1 % (10-50); Mean Corpuscular HGB Conc 33.6 g/dL (31.8-35.4); Mean Platelet Volume 11.1 fl (7.4-10.4); Monocytes # 0.3 K/mm3 (0.1-1.0); Monocytes % 7.5 % (1.7-9.3); Neutrophils # 2.8 K/mm3 (1.8-7.8); Neutrophils % 68.6 % (37.0-80.0); Platelet Count 183 K/mm3 (142-424); Red Blood Count 3.49 M/mm3 (4.60-6.20); Red Cell Distribution Width 13.5 % (11.5-17.5); White Blood Count 4.1 K/mm3 (4.8-10.8)
[2024-04-11 20:19] LABS: Albumin Level 3.4 g/dl (3.5-5.0); Chloride 106 mmol/L (98-107); Potassium 4.1 mmoL/L (3.5-5.1); Sodium 141 mmol/L (136-145)
[2024-04-11 20:22] LABS: Alanine Aminotransferase 73 U/L (12-78); Alkaline Phosphatase 330 U/L (38-126); Anion Gap 14.1 mEq/L (5-15); Aspartate Amino Transferase 62 U/L (17-59); Blood Urea Nitrogen 28 mg/dl (9-20); Carbon Dioxide 25 mmol/L (22.0-30.0); Estimated Glomerular Filt Rate 57 ml/min (>60); GFR (African American) 69 ML/MIN (>60); Globulin 3.3 g/dL (1.3-3.2); Total Protein,Serum 6.7 g/dl (6.3-8.2)
[2024-04-11 20:23] LABS: Calcium 8.6 mg/dl (8.4-10.2); Glucose 131 mg/dl (74-100)
== END 2024-04-11 23:59 | disposition home or self-care (01) ==
LOC: LAB.DROPOF 19:49
PROVIDERS: PCP Surgery; Visit Provider Surgery
DX: K80.12 Calculus of gallbladder with acute and chronic cholecystitis without obstruction (principal)
CPT/HCPCS: 80053; 85025

== ENCOUNTER 2024-04-18 08:43 | Outpatient (CLI) | payer MEDICARE, SELFPAY ==
[2024-04-18 09:03] LABS: Basophils # 0.1 K/mm3 (0-0.2); Eosinophils # 0.1 K/mm3 (0.0-0.4); Eosinophils % 1.4 % (0.1-12.0); Hematocrit 31.6 % (42.0-52.0); Hemoglobin 10.6 g/dL (14.1-18.0); Lymphocytes # 1.1 K/mm3 (0.7-4.5); Lymphocytes % 24.7 % (10-50); Mean Corpuscular HGB Conc 33.5 g/dL (31.8-35.4); Mean Corpuscular Hemoglobin 32.9 pg (27.0-31.2); Mean Corpuscular Volume 98.2 fl (80-94); Mean Platelet Volume 10.4 fl (7.4-10.4); Monocytes # 0.3 K/mm3 (0.1-1.0); Monocytes % 7.4 % (1.7-9.3); Neutrophils # 2.9 K/mm3 (1.8-7.8); Neutrophils % 65.5 % (37.0-80.0); Platelet Count 202 K/mm3 (142-424); Red Blood Count 3.22 M/mm3 (4.60-6.20); White Blood Count 4.4 K/mm3 (4.8-10.8)
[2024-04-18 09:48] LABS: Alanine Aminotransferase 29 U/L (12-78); Albumin Level 3.5 g/dl (3.5-5.0); Albumin/Globulin Ratio 1.2 (1.1-1.8); Alkaline Phosphatase 205 U/L (38-126); Anion Gap 8.9 mEq/L (5-15); Aspartate Amino Transferase 28 U/L (17-59); Bilirubin,Total 1.2 mg/dl (0.2-1.3); Blood Urea Nitrogen 16 mg/dl (9-20); Calcium 8.6 mg/dl (8.4-10.2); Carbon Dioxide 29 mmol/L (22.0-30.0); Chloride 104 mmol/L (98-107); Estimated Glomerular Filt Rate 57 ml/min (>60); GFR (African American) 69 ML/MIN (>60); Globulin 2.9 g/dL (1.3-3.2); Glucose 88 mg/dl (74-100); Potassium 3.9 mmoL/L (3.5-5.1); Sodium 138 mmol/L (136-145); Total Protein,Serum 6.4 g/dl (6.3-8.2)
[2024-04-18 11:23] LABS: Albumin Level 3.4 g/dl (3.5-5.0); Alkaline Phosphatase 202 U/L (38-126); Aspartate Amino Transferase 28 U/L (17-59); Bilirubin,Direct 0.6 mg/dl (0.0-0.4); Bilirubin,Indirect 0.5 mg/dL (0.0-0.9); Bilirubin,Total 1.1 mg/dl (0.2-1.3); Bilirubin,Unconjugated 0.6 mg/dL (0.0-1.1); Total Protein,Serum 6.4 g/dl (6.3-8.2)
[2024-04-18 11:47] LABS: Alanine Aminotransferase 30 U/L (12-78)
== END 2024-04-18 23:59 | disposition home or self-care (01) ==
LOC: LAB 08:45
PROVIDERS: PCP Family Medicine; Visit Provider Surgery
DX: K82.9 Disease of gallbladder, unspecified (principal); R11.10 Vomiting, unspecified
CPT/HCPCS: 36415; 80053; 80076; 85025

== ENCOUNTER 2024-04-26 08:07 | Day surgery (SDC) | payer MEDICARE, SELFPAY ==
[2024-04-26] VITALS (10 sets, daily range): BP systolic 124–199; BP diastolic 67–98; PULSE 55–75; RESP 16–20; TEMP 36.9; O2SAT 93–100; BMI 25.4
--- NOTE | 2024-04-26 06:57 | IR_ITS ---
APPROVED REPORT Patient Location: Outpatient PROCEDURES Left heart catheterization Left ventriculogram Selective coronary angiogram INDICATION Abnormal Myoview, Angina pectoris Informed consent was obtained prior to the procedure. COMPLICATIONS NONE Estimated Blood Loss: LESS THAN 10 ML TECHNIQUE One percent lidocaine used to anesthetize the right anterior aspect of the wrist. The right radial artery was accessed via the Seldinger technique. A 6 Turkmen sheath was placed in the right radial artery. 2.5 mg of Verapamil, 800 mcg of nitroglycerin, 1mg Lidocaine and 5000 U Heparin were given through the arterial sheath. The 6 Turkmen JL 3 guide catheter was also used to perform left heart catheterization, left ventriculogram and selective coronary angiogram. At the end of the procedure the sheath was removed good hemostasis was achieved using Traclet band, patient was transferred to the postop holding area in stable condition. ANGIOGRAPHIC RESULTS The left main artery Normal The left anterior descending artery Has a proximal smooth concentric 40% stenosis with remaining vessel normal The circumflex artery Large dominant normal The right coronary artery Vestigial normal The AGUILLON ventriculogram reveals Hyperdynamic at 80% with near cavitary obliteration The left ventricular end-diastolic pressure 20 mmHg IMPRESSION Moderate proximal LAD disease as described above Hyperdynamic ventricle with near cavitary obliteration during systole Elevated LVEDP PLAN 1. Medical management for coronary disease 2. Recommend medicine such as verapamil and/or beta-blockers 3. Risk factor modification 4. Consider cardiac MRI Electronically signed by : Noé Park MD 04/26/2024 12:11:41
[2024-04-26 08:38] LABS: Basophils % 1.1 % (0.1-2.0); Eosinophils # 0.1 K/mm3 (0.0-0.4); Eosinophils % 1.6 % (0.1-12.0); Hematocrit 33.3 % (42.0-52.0); Hemoglobin 11.3 g/dL (14.1-18.0); Lymphocytes # 1.2 K/mm3 (0.7-4.5); Lymphocytes % 32.4 % (10-50); Mean Corpuscular HGB Conc 33.9 g/dL (31.8-35.4); Mean Corpuscular Hemoglobin 32.5 pg (27.0-31.2); Mean Corpuscular Volume 96.1 fl (80-94); Mean Platelet Volume 10.4 fl (7.4-10.4); Monocytes # 0.4 K/mm3 (0.1-1.0); Monocytes % 9.3 % (1.7-9.3); Neutrophils # 2.1 K/mm3 (1.8-7.8); Neutrophils % 55.6 % (37.0-80.0); Platelet Count 176 K/mm3 (142-424); Red Blood Count 3.47 M/mm3 (4.60-6.20); Red Cell Distribution Width 14.2 % (11.5-17.5); White Blood Count 3.8 K/mm3 (4.8-10.8)
[2024-04-26 08:53] LABS: Blood Urea Nitrogen 16 mg/dl (9-20); Calcium 8.7 mg/dl (8.4-10.2); Carbon Dioxide 29 mmol/L (22.0-30.0); Chloride 103 mmol/L (98-107); Creatinine Clearance Estimated 50 mL/min (50-200); Estimated Glomerular Filt Rate 57 ml/min (>60); GFR (African American) 69 ML/MIN (>60); Glucose 91 mg/dl (74-100); Sodium 138 mmol/L (136-145)
[2024-04-26] MEDS: LIDOCAINE 1% 10ML MDV 20 ML IJ (11:34)
[2024-04-26] MEDS: HEPARIN 1,000 UNITS/ML 10ML VIAL (CATH LAB) 10000 UNIT IV (11:34)
[2024-04-26] MEDS: HEPARIN 1,000 UNITS/500ML NS (CATH LAB) 3000 UNIT IV (11:35)
[2024-04-26] MEDS: diphenhydrAMINE 50MG/ML VIAL 50 MG IV (11:35)
[2024-04-26] MEDS: VERAPAMIL 2.5MG/ML 2ML VIAL 2.5 MG IV (11:35)
[2024-04-26] MEDS: 0.9 % SODIUM CHLORIDE 500 ML 25 ML IV (11:37)
[2024-04-26] MEDS: FENTANYL 100MCG/2ML VIAL 50 MCG IV (12:07)
[2024-04-26] MEDS: MIDAZOLAM HCL 1MG/ML 5ML VIAL 1 MG IV (12:07)
[2024-04-26] MEDS: IOPAMIDOL-370 (76%);100ML BOTTLE 50 ML IV (14:06)
== END 2024-04-26 14:46 | disposition home or self-care (01) ==
LOC: CATHLAB 08:09
PROVIDERS: PCP Family Medicine; Visit Provider Internal Medicine
DX: I25.118 Atherosclerotic heart disease of native coronary artery with other forms of angina pectoris (principal); R94.31 Abnormal electrocardiogram [ECG] [EKG]; R93.1 Abnormal findings on diagnostic imaging of heart and coronary circulation; Z79.899 Other long term (current) drug therapy; I10 Essential (primary) hypertension
CPT/HCPCS: 80048; 85025; 93458; 99152; C1725; C1769; J1200; J1644; J2250; J3010; Q9967

== ENCOUNTER 2024-05-17 18:12 | Inpatient (IN) | payer MEDICARE, SELFPAY ==
[2024-05-17 18:14] VITALS: BP 134/73; PULSE 66; RESP 18; TEMP 36.9; O2SAT 97; BMI 25.4
--- NOTE | 2024-05-17 18:28 | ED_ITS ---
Discharge Plan Disposition Patient Disposition: Admitted Prescriptions Prescriptions: No Action aspirin [Adult Low Dose Aspirin] 81 mg tablet,delayed release (DR/EC) 81 mg PO DAILY Qty: 30 5RF verapamil 240 mg capsule,ext rel. pellets 24 hr 240 mg PO DAILY Qty: 30 5RF hydrochlorothiazide 25 mg tablet 25 mg PO DAILY Qty: 90 3RF bisoprolol fumarate 5 mg tablet 5 mg PO QDAY Qty: 30 5RF hydrocodone-acetaminophen 5-325 mg tablet 1 tab PO Q6H PRN (Reason: post-op pain) Qty: 13 0RF Referrals Follow up/Referrals: Dada Chavez MD [Primary Care Provider] - See instructions Clinical Impressions Clinical Impression: Postoperative abdominal pain, Hyperbilirubinemia, Pancreatitis, Choledocholithiasis, Ascites, Pleural effusion Instructions Patient Instructions: DI for Acute Abdominal Pain Print Language Print Language: Zambian Discharge ED Provider: Sharon Redd General Adult HPI <WALTER Ahumada - Last Filed: 05/17/24 18:52> General Chief complaint: Abdominal Pain Stated complaint: abdominal pain Time Seen by Provider: 05/17/24 18:23 Mode of Arrival: Wheelchair Source of Information: Patient Limitations: No Limitations Description of Symptoms (Recalled from ER Triage Doc. by RN): BELLY PAIN,VOMITING. PT LOOKS YELLOW Related Data Previous Rx's ?Medication ?Instructions ?Recorded aspirin 81 mg tablet,delayed 81 mg PO DAILY #30 tabs 03/22/24 release (Adult Low Dose Aspirin) hydrocodone 5 mg-acetaminophen 325 1 tab PO Q6H PRN post-op pain #13 04/05/24 mg tablet tabs bisoprolol fumarate 5 mg tablet 5 mg PO QDAY #30 tabs 05/10/24 hydrochlorothiazide 25 mg tablet 25 mg PO DAILY htn #90 tabs 05/10/24 verapamil 240 mg 24 hr 240 mg PO DAILY #30 caps 05/10/24 capsule,extended release Allergies Allergy/AdvReac Type Severity Reaction Status Date / Time No Known Allergies Allergy Verified 05/10/24 14:33 <Sharon Redd MD - Last Filed: 05/17/24 20:24> History of Present Illness HPI narrative: Patient is an 88-year-old male who presents today with abdominal pain over the last several days with nausea and vomiting states that he feels like he has a toothache that will not go away in the upper aspect particular the right side of his abdomen. States he had a cholecystectomy done at the end of March with Dr. Valdez per Dr. Valdez's note pathology showed chronic calculus cholecystitis however his operative note demonstrated that there was adherence to the localized tissue significant inflammatory processes and a questionable mass. Patient denies any fevers or chills etc. [facility] <WALTER Ahumada - Last Filed: 05/17/24 18:52> [facility] Disclaimer: The information contained in this section may have been updated after the patient was seen, as this information can be updated by other users. Medical History (Updated 05/17/24 @ 20:21 by Sharon Redd MD) Hyperlipidemia Coronary artery disease Abnormal ECG Abnormal findings on diagnostic imaging of heart and coronary circulation Renal insufficiency Hypertension Surgical History History of colonoscopy H/O shoulder surgery Family History Mother Diabetes Brother Diabetes Sister Diabetes Social History Smoking Status: Never smoker alcohol intake: never substance use type: denies use current occupational status: retired Travel in the last 8 weeks: None household members: none housing: house lives independently: Yes marital status: education level: college long-term: No caffeine: Yes special elmer needs: No agree to transfusion: No do you feel safe at home: Yes victim of physical abuse: No victim of emotional abuse: No victim of sexual abuse: No would you like helpful sources: No Have you lived/traveled outside [place] in past 30 days?: No Contact w/someone who lives/traveled outside US past 30 days?: No Exposure to someone with infectious disease in past 14 days?: No Do you have a fever (greater than 100.4 F or 38 C)?: No Have you tested positive for COVID-19: No Exposed to someone with COVID-19 in past 14 days?: No Do you have a sore throat?: No Do you have a cough?: No Do you have any weakness?: No Do you have any diarrhea?: No Are you experiencing any unusual bleeding?: No Do you have any muscle aches/pain?: No Do you have any abdominal pain?: Yes Are you experiencing loss of taste or smell?: No Other Medical History Have you received the Pneumonia Vaccine: Yes <WALTER Ahumada - Last Filed: 05/17/24 18:52> ROS Obtained: Yes Systems reviewed as appropriate & no additional complaints except as documented Physical Exam <WALTER Ahumada - Last Filed: 05/17/24 18:52> General General appearance: alert and in no apparent distress Head Head exam: atraumatic and normal inspection Eye Eye exam: Present normal appearance, PERRL and EOMI ENT ENT exam: Present normal exam, normal oropharynx and mucous membranes moist Neck Neck exam: Present normal inspection, full ROM and trachea midline; Absent lymphadenopathy Chest Chest inspection: Present normal inspection and symmetric chest wall rise Respiratory Respiratory exam: Present normal lung sounds bilaterally; Absent accessory muscle use Cardiovascular Cardiovascular exam: Present regular rate, normal rhythm, normal heart sounds, +S1 and +S2 Abdominal Exam Abdominal exam: Present soft and normal bowel sounds; Absent tenderness, guarding or rebound Extremities Exam Extremities exam: Present normal inspection and full ROM Neurological Exam Neurological exam: Present alert, oriented X3 and CN II-XII intact Psychiatric Psychiatric exam: Present normal affect and normal mood Skin Skin exam: Present warm, dry and normal color Lymphatic Lymphatic Findings: no adenopathy <Sharon Redd MD - Last Filed: 05/17/24 20:24> Abdominal Exam Abdominal exam: Present tenderness (Right upper quadrant and epigastric region) Medical Decision Making <WALTER Ahumada - Last Filed: 05/17/24 18:52> Medical Records Screening: Per USPSTF and CDC recommendations, given the prevalence of disease in our region, it is our hospital?s policy to screen for HIV and viral Hepatitis for all patients aged 18 and over and those with ongoing risk factors. Vital Signs: 05/17/24 18:14 05/17/24 18:50 Temperature 98.4 F Temperature Source Oral Pulse Rate 62 Pulse Rate [Right] 66 Respiratory Rate 18 Blood Pressure 125/62 Blood Pressure [Right Arm] 134/73 Blood Pressure Mean [Right Arm] 93 02 Sat by Pulse Oximetry 97 96 Oxygen Delivery Method Room Air Room Air Lab Data Lab Results 05/17/24 18:45: WBC 3.7 L, RBC 3.38 L, Hgb 10.8 L, Hct 32.6 L, MCV 96.2 H, MCH 32.0 H, MCHC 33.3, RDW 14.1, Plt Count 172, MPV 9.7, Neut % (Auto) 89.4 H, Lymph % (Auto) 6.3 L, [place] % (Auto) 2.3, Eos % (Auto) 1.2, Baso % (Auto) 0.7, Neut # (Auto) 3.3, Lymph # (Auto) 0.2 L, [place] # (Auto) 0.1, Eos # (Auto) 0.0, Baso # (Auto) 0.0, Total Counted 100, Neutrophils % (Manual) 89 H, Lymphocytes % (Manual) 7 L, Monocytes % (Manual) 3, Eosinophils % (Manual) 1, Platelet Estimate Normal, Hypochromasia 1+, Sodium 136, Potassium 3.6, Chloride 108 H, Carbon Dioxide 22, Anion Gap 9.6, BUN 26 H, Creatinine 1.10, Estimated Creat Clear 55, Estimated GFR 63, Est GFR ( Amer) 76, Glucose 86, Calcium 8.3 L , Total Bilirubin 5.6 H, GGT 226 H, AST 72 H, ALT 77, Alkaline Phosphatase 329 H , Total Protein 6.4, Albumin 3.3 L, Globulin 3.1, Albumin/Globulin Ratio 1.1, L ipase 3757 H 05/17/24 18:45 05/17/24 18:45 Orders (Tests/Meds): ED MEDICATIONS Discontinued Medications Generic Name Dose Route Start Last Admin Trade Name Freq PRN Reason Stop Dose Admin Sodium Chloride 1,000 mls @ 999 mls/hr 05/17/24 18:30 05/17/24 19:13 Sod Chlor 0.9% 1000ml Bag IV 05/17/24 19:30 999 mls/hr .Q1H1M MARIE Administration Iopamidol 75 ml 05/17/24 19:15 05/17/24 19:16 Iopamidol-370 (76%);100ml Bottle IV 05/17/24 19:16 75 ml ONCE ONE Administration Morphine Sulfate 4 mg 05/17/24 18:30 05/17/24 19:12 Morphine 4mg/Ml Syringe IV 05/17/24 18:31 4 mg ONCE ONE Administration Ondansetron HCl 4 mg 05/17/24 18:30 12/12/24 19:12 Ondansetron 4mg/2ml Vial IV 05/17/24 18:31 4 mg ONCE ONE Administration Sodium Chloride 10 ml 05/17/24 19:15 05/17/24 19:16 Sodium Chloride 0.9% 10ml Syr (Rad Only) IV 05/17/24 19:16 10 ml ONCE ONE Administration ORDERS Category Date Time Status CT abdomen pelvis w con Stat Cat Scan 05/17/24 18:30 Completed POCUS Point of Care (ER Only) Stat Exams 05/17/24 19:50 Ordered CBC w/Auto Diff [Complete Blood Count Auto Diff] Stat Lab 05/17/24 18:45 Completed CMP [Comprehensive Metabolic Panel] Stat Lab 05/17/24 18:45 Completed GGT [Gamma Glutamyl Transpeptidase] Stat Lab 05/17/24 18:45 Completed HIV (1&2) Antibody Rapid Stat Lab 05/17/24 18:45 Received Hep C Ab with Reflex to RNA Stat Lab 05/17/24 18:45 Received Lipase Stat Lab 05/17/24 18:45 Completed Medical Decision Narrative: In summary patient is a [age, sex] who presents to the emergency department for evaluation of [complaint]. Patient is [hemodynamically stable/unstable] upon arrival, [febrile/afebrile]. [Unremarkable physical exam, nonfocal exam versus focal remarkable exam]. Differential diagnosis includes [DDx]. Initial workup will be conducted with [hematologic labs, imaging, respiratory swab, describe workup]. Initial interventions include [crystalloid bolus, medications, p.o. challenge, etc.] initial workup reviewed by me [hematologic labs are remarkable for... Imaging remarkable for... Urinalysis remarkable for]. Upon repeat evaluation [patient had acceptable resolution of symptoms, had persistent pain for which additional interventions were conducted (describe interventions), tolerated p.o., was ambulatory, etc.]. Given this [patient is appropriate for discharge at this time and will be discharged with a prescription for... The case was discussed with hospital medicine regarding management and they will admit the patient their service for continued evaluation at this time... Etc.] Places where you can increase complexity: I informally interpreted the patient's chest x-ray or CT read and is remarkable for... Documenting what the cardiac cath lab radiology technologist shows with rate and rhythm Consideration of test but deferring. Ex: I considered chest x-ray on this patient however given that they have no oxygen requirement and are clear to auscultation all lung bender will be deferred. Social determinants of health: Given that patient is undomiciled increases complexity. Given that patient has polysubstance abuse compounds all aspects of care <Sharon Redd MD - Last Filed: 05/17/24 20:24> [place] Inquiry Pt receiving controlled substance: No Vital Signs: 05/17/24 18:14 05/17/24 18:50 Temperature 98.4 F Temperature Source Oral Pulse Rate 62 Pulse Rate [Right] 66 Respiratory Rate 18 Blood Pressure 125/62 Blood Pressure [Right Arm] 134/73 Blood Pressure Mean [Right Arm] 93 02 Sat by Pulse Oximetry 97 96 Oxygen Delivery Method Room Air Room Air Lab Data Lab results reviewed: Yes I reviewed the patient's lab results. Lab Results 05/17/24 18:45: WBC 3.7 L, RBC 3.38 L, Hgb 10.8 L, Hct 32.6 L, MCV 96.2 H, MCH 32.0 H, MCHC 33.3, RDW 14.1, Plt Count 172, MPV 9.7, Neut % (Auto) 89.4 H, Lymph % (Auto) 6.3 L, [place] % (Auto) 2.3, Eos % (Auto) 1.2, Baso % (Auto) 0.7, Neut # (Auto) 3.3, Lymph # (Auto) 0.2 L, [place] # (Auto) 0.1, Eos # (Auto) 0.0, Baso # (Auto) 0.0, Total Counted 100, Neutrophils % (Manual) 89 H, Lymphocytes % (Manual) 7 L, Monocytes % (Manual) 3, Eosinophils % (Manual) 1, Platelet Estimate Normal, Hypochromasia 1+, Sodium 136, Potassium 3.6, Chloride 108 H, Carbon Dioxide 22, Anion Gap 9.6, BUN 26 H, Creatinine 1.10, Estimated Creat Clear 55, Estimated GFR 63, Est GFR ( Amer) 76, Glucose 86, Calcium 8.3 L , Total Bilirubin 5.6 H, GGT 226 H, AST 72 H, ALT 77, Alkaline Phosphatase 329 H , Total Protein 6.4, Albumin 3.3 L, Globulin 3.1, Albumin/Globulin Ratio 1.1, L ipase 3757 H Orders (Tests/Meds): ED MEDICATIONS Discontinued Medications Generic Name Dose Route Start Last Admin Trade Name Freq PRN Reason Stop Dose Admin Sodium Chloride 1,000 mls @ 999 mls/hr 05/17/24 18:30 05/17/24 19:13 Sod Chlor 0.9% 1000ml Bag IV 05/17/24 19:30 999 mls/hr .Q1H1M MARIE Administration Iopamidol 75 ml 05/17/24 19:15 05/17/24 19:16 Iopamidol-370 (76%);100ml Bottle IV 05/17/24 19:16 75 ml ONCE ONE Administration Morphine Sulfate 4 mg 05/17/24 18:30 05/17/24 19:12 Morphine 4mg/Ml Syringe IV 05/17/24 18:31 4 mg ONCE ONE Administration Ondansetron HCl 4 mg 05/17/24 18:30 05/17/24 19:12 Ondansetron 4mg/2ml Vial IV 05/17/24 18:31 4 mg ONCE ONE Administration Sodium Chloride 10 ml 05/17/24 19:15 05/17/24 19:16 Sodium Chloride 0.9% 10ml Syr (Rad Only) IV 05/17/24 19:16 10 ml ONCE ONE Administration ORDERS Category Date Time Status CT abdomen pelvis w con Stat Cat Scan 05/17/24 18:30 Completed POCUS Point of Care (ER Only) Stat Exams 05/17/24 19:50 Ordered CBC w/Auto Diff [Complete Blood Count Auto Diff] Stat Lab 05/17/24 18:45 Completed CMP [Comprehensive Metabolic Panel] Stat Lab 05/17/24 18:45 Completed GGT [Gamma Glutamyl Transpeptidase] Stat Lab 05/17/24 18:45 Completed HIV (1&2) Antibody Rapid Stat Lab 05/17/24 18:45 Received Hep C Ab with Reflex to RNA Stat Lab 05/17/24 18:45 Received Lipase Stat Lab 05/17/24 18:45 Completed Medical Decision Narrative: Patient is an 88-year-old male who is about 6 weeks postoperative cholecystectomy with pathology report showing chronic calculus cholecystitis however his initial labs at that time had elevated bilirubin and elevated alk phos concerning for possible post hepatic or post gallbladder obstruction. It is possible that he has a retained stone choledocholithiasis etc. Additionally the operative note was concerning for other inflammatory processes and a questionable mass malignancy cannot be ruled out at this point. Will get a contrasted CT for further evaluation other conditions on the differential include biloma abscess etc. Reassessment patient feeling much better serial abdominal exams are benign patient is not septic clinically. CT scan was performed which I personally interpreted which shows significant ascites which is new in comparison with recent CT scan as well as bilateral pleural effusions. My personal concern with this is possible bile leak, versus fluid associated with significant pancreatitis, versus heart failure. Limited bedside ultrasound please see procedure note demonstrated there is evidence of elevated right atrial pressures and certainly could be the cause of some of the fluid retention he will need further cardiac workup. I discussed the case with Dr. Garcia after looking at labs which show what is most likely a postobstructive pattern with elevated alk phos and GGT as well as bilirubin and lipase being 4000. I suspect most likely that this is choledocholithiasis and retained stone. And I believe most likely that the fluid is associated with the pancreatitis and capillary leakage. However this will need to be evaluated further. He will need an ERCP which Dr. Garcia will perform tomorrow. Dr. Garcia specifically asked for cardiology to evaluate the patient in the morning. I spoke with Dr. Boyce with hospital medicine who understood all of this and agreed to admit the patient here. Additionally the patient declined being transferred to a higher level of care and specifically wanted to stay here tomorrow Procedures <Sharon Redd MD - Last Filed: 05/17/24 20:24> Miscellaneous Procedure Procedure Performed: Limited cardiac ultrasound Indication: Dyspnea Identified structures: The heart was visualized in the parasternal long axis, parastenal short axis, apical four chamber and subxyphiod views. The IVC was visualized in the short axis and long axis at its entry into the right atrium. Findings: Normal LVEF no regional wall motion abnormalities no pericardial effusion no severe right heart strain IVC is plethoric at 2-1/2 cm with no respirophasic variation there is evidence of tricuspid regurg Impression: Normal LVEF concern for elevated right atrial pressures with dilated IVC tricuspid regurg in the setting of pleural effusions and ascites Images were sent to permanent archive The study was technically adequate CPT: 04022-30 This study was performed by me, and I personally interpreted all images/videos. Based on my clinical judgement, these images were adequate and did not necessitate further imaging. Critical Care <Sharon Redd MD - Last Filed: 05/17/24 20:24> Critical Care Time Critical Care Time: Yes Attestation: On 05/17/24, the high probability of a clinically significant, sudden or life threatening deterioration of the following system(s) required my full and direct attention, intervention and personal management. The time I documented below is in addition to time spent performing reported procedures but includes the following listed in this critical care notation. Total Time Total Critical Care Time: 35
--- NOTE | 2024-05-17 18:30 | CT_ITS ---
PROCEDURE INFORMATION: Exam: CT Abdomen And Pelvis With Contrast Exam date and time: 05/17/2024 7:15 PM Age: 88 years old Clinical indication: Other: Epigastric/ruq abd pain 6 wks post op yesy TECHNIQUE: Imaging protocol: Computed tomography of the abdomen and pelvis with contrast. Radiation optimization: All CT scans at this facility use at least one of these dose optimization techniques: automated exposure control; mA and/or kV adjustment per patient size (includes targeted exams where dose is matched to clinical indication); or iterative reconstruction. Contrast material: ISOVUE; Contrast volume: 75 ml; Contrast route: IV; COMPARISON: 1. CT ABDOMEN PELVIS W CON 02/12/2024 3:[address] ANGIO ABDOMEN PELVIS 11/05/2023 6:31 PM FINDINGS: Lungs: Interval development of moderate size right and small left pleural effusions and associated bibasilar interlobular septal thickening suggesting interstitial edema. Bronchiectasis of the inferior lingula redemonstrated. Stable cluster of nodular densities in the posterolateral inferior left lower lobe largest measuring 8 mm. Liver: Small cysts in the lateral segment left lobe of the liver redemonstrated. Liver otherwise unremarkable. Gallbladder and biliary ducts: Interval cholecystectomy. No evident bile duct dilatation. Pancreas: Normal. No ductal dilation. Spleen: Normal. No splenomegaly. Adrenal glands: Normal. No mass. Kidneys and ureters: Stable benign-appearing 7 cm mildly complex cyst right kidney. Numerous small benign-appearing left renal cysts redemonstrated. No follow-up of these lesions advised. Two small stones thought to be lodged in the distal left UVJ the largest measuring 3 mm without significant change from 02/12/2024. Kidneys and ureters otherwise unremarkable with no obstructing stones or uropathy. Stomach and bowel: Multiple diverticula in the sigmoid colon. Colon otherwise unremarkable. GI tract structures otherwise unremarkable with no evident wall thickening allowing for incomplete distention. Appendix: Appendix is normal. No evidence of appendicitis. Intraperitoneal space: Interval development of small to moderate amount of free fluid in the abdomen and pelvis. Vasculature: Unremarkable. No abdominal aortic aneurysm. Lymph nodes: Unremarkable. No enlarged lymph nodes. Urinary bladder: Unremarkable as visualized. Reproductive: Unremarkable as visualized. Bones/joints: Unremarkable. No acute fracture. Soft tissues: Interval development of moderate body wall edema and edema of the intra-abdominal fat tissues compatible with anasarca. IMPRESSION: 1. Interval cholecystectomy. 2. Interval development of bilateral pleural effusions [id number] with associated interstitial edema suggesting possible CHF. 3. Interval development of anasarca changes and associated ascites that may also be related to CHF. 4. Stable position of the small stones in the distal left UVJ. 5. Small cluster of nodules in the left lower lobe largest measuring 8 mm without significant change dating back to 11/05/2023. For patients at low risk (minimal or absent history of smoking and of other known risk factors), recommend CT Chest at 3-6 months, then consider CT Chest at 18-24 months. For patients at high risk (history of smoking or of other known risk factors), recommend CT Chest at 3-6 months, then CT Chest at 18-24 months. (Reference: Matt) 6. Additional nonemergent findings as above. COMMENTS: Consistent with the [place] [employer]'s Incidental Findings Committee white paper (J Am Genia Radiol 2018): Any incidental renal lesion less than 1 cm or classified as too small to characterize, or any incidental cystic renal lesion characterized as simple-appearing, is likely benign. No follow-up imaging is recommended for these lesions per consensus recommendations based on imaging criteria. REFERENCES: Matt Zacarias, et al. Guidelines for Management of Incidental Pulmonary Nodules Detected on CT Images: From the [employer]ischner Society 2017. Radiology. 2017;284(1):228-243.
[2024-05-17 18:50] VITALS: BP 125/62; PULSE 62; O2SAT 96
[2024-05-17 18:55] LABS: Basophils % 0.7 % (0.1-2.0); Eosinophils % 1.2 % (0.1-12.0); Hematocrit 32.6 % (42.0-52.0); Hemoglobin 10.8 g/dL (14.1-18.0); Lymphocytes # 0.2 K/mm3 (0.7-4.5); Lymphocytes % 6.3 % (10-50); Mean Corpuscular HGB Conc 33.3 g/dL (31.8-35.4); Mean Corpuscular Volume 96.2 fl (80-94); Mean Platelet Volume 9.7 fl (7.4-10.4); Monocytes # 0.1 K/mm3 (0.1-1.0); Monocytes % 2.3 % (1.7-9.3); Neutrophils # 3.3 K/mm3 (1.8-7.8); Neutrophils % 89.4 % (37.0-80.0); Platelet Count 172 K/mm3 (142-424); Red Blood Count 3.38 M/mm3 (4.60-6.20); Red Cell Distribution Width 14.1 % (11.5-17.5); White Blood Count 3.7 K/mm3 (4.8-10.8)
[2024-05-17 19:00] LABS: Albumin Level 3.3 g/dl (3.5-5.0); Chloride 108 mmol/L (98-107)
[2024-05-17 19:01] LABS: Potassium 3.6 mmoL/L (3.5-5.1); Sodium 136 mmol/L (136-145)
[2024-05-17 19:03] LABS: Alanine Aminotransferase 77 U/L (12-78); Albumin/Globulin Ratio 1.1 (1.1-1.8); Alkaline Phosphatase 329 U/L (38-126); Anion Gap 9.6 mEq/L (5-15); Aspartate Amino Transferase 72 U/L (17-59); Bilirubin,Total 5.6 mg/dl (0.2-1.3); Blood Urea Nitrogen 26 mg/dl (9-20); Carbon Dioxide 22 mmol/L (22.0-30.0); Creatinine Clearance Estimated 55 mL/min (50-200); Estimated Glomerular Filt Rate 63 ml/min (>60); GFR (African American) 76 ML/MIN (>60); Globulin 3.1 g/dL (1.3-3.2); Total Protein,Serum 6.4 g/dl (6.3-8.2)
[2024-05-17 19:04] LABS: Calcium 8.3 mg/dl (8.4-10.2); Glucose 86 mg/dl (74-100)
[2024-05-17 19:05] LABS: MANUAL DIFFERENTIAL MANUAL DIFFERENTIAL (MANUAL DIFF)
[2024-05-17] MEDS: MORPHINE 4MG/ML SYRINGE 4 MG IV (19:12)
[2024-05-17] MEDS: ONDANSETRON 4MG/2ML VIAL 4 MG IV (19:12)
[2024-05-17] MEDS: 0.9 % SODIUM CHLORIDE 1000ML 1,000 ML 999 ML IV (19:13)
--- NOTE | 2024-05-17 19:13 | PC.NURSE ---
pt to ct scan
[2024-05-17] MEDS: IOPAMIDOL-370 (76%);100ML BOTTLE 75 ML IV (19:16)
[2024-05-17] MEDS: SODIUM CHLORIDE 0.9% 10ML SYR (RAD ONLY) 10 ML IV (19:16)
[2024-05-17 19:20] LABS: Gamma Glutamyl Transpeptidase 226 U/L (15-73)
[2024-05-17 19:27] LABS: Eosinophils % 1 % (0-3); Hypochromasia 1+; Lymphocytes % 7 % (10-50); Monocytes % 3 % (2-9); Neutrophils % 89 % (42-76); Platelet Estimate Normal; Total Cells Counted 100
[2024-05-17 19:50] LABS: Lipase 3757 U/L (23-300)
--- NOTE | 2024-05-17 19:52 | PC.NURSE ---
lab called with critical. lipid 3757 dilution 1:10
--- NOTE | 2024-05-17 19:53 | PC.NURSE ---
lab called with critical. lipase 1930 dilution 1:10
[2024-05-17 20:39] VITALS: BP 101/54; PULSE 58; RESP 16; TEMP 36.6; O2SAT 96
--- NOTE | 2024-05-17 20:40 | PC.NURSE ---
report called to KATY Lopez
--- NOTE | 2024-05-17 20:54 | PC.NURSE ---
Patient arrived to floor via wheelchair from ED at 21:53.
[2024-05-17 21:04] VITALS: BP 95/55; PULSE 60; RESP 16; TEMP 36.7; O2SAT 98
--- NOTE | 2024-05-17 21:52 | EXP.HP ---
History of Present Illness *Admission Date: 05/17/24 *Reason for visit:: Abdominal pain *History of present illness: Patient presents to hospital complaining of abdominal discomfort over the last 2.5 days. Patient describes abdominal discomfort as 8/10, constant, sharp, focused in right upper quadrant/epigastric region, nonradiating, occurring with nausea/vomiting. Patient also admits to intermittent chills over the past few days. Denies fevers, chest pain, shortness of breath, cough, ataxia, blurry vision, headaches. Patient on bisoprolol and verapamil as outpatient, but not sure why. Patient denies any knowledge of previous heart issues. CT abdomen/pelvis shows signs of ascites, and pleural effusions. Patient denies cirrhosis or CHF diagnosis. WBC 3.7, total bili 5.6, GGT 226, AST 72, alk phos 329, albumin 3.3, lipase 3757. [facility] Disclaimer: The information contained in this section may have been updated after the patient was seen, as this information can be updated by other users. Medical History (Updated 05/18/24 @ 01:06 by Aníbal Boyce MD) Hyperlipidemia Coronary artery disease Abnormal ECG Abnormal findings on diagnostic imaging of heart and coronary circulation Renal insufficiency Hypertension Surgical History History of colonoscopy H/O shoulder surgery Family History Mother Diabetes Brother Diabetes Sister Diabetes Social History (Updated 05/17/24 @ 21:23 by Jessica Valverde RN) Smoking Status: Never smoker alcohol intake: never substance use type: denies use current occupational status: retired Travel in the last 8 weeks: None household members: none housing: house lives independently: Yes marital status: education level: college [employer]: No caffeine: Yes special elmer needs: No agree to transfusion: No do you feel safe at home: Yes victim of physical abuse: No victim of emotional abuse: No victim of sexual abuse: No would you like helpful sources: No Have you lived/traveled outside US in past 30 days?: No Contact w/someone who lives/traveled outside US past 30 days?: No Exposure to someone with infectious disease in past 14 days?: No Do you have a fever (greater than 100.4 F or 38 C)?: No Have you tested positive for COVID-19: No Exposed to someone with COVID-19 in past 14 days?: No Do you have a sore throat?: No Do you have a cough?: No Do you have any weakness?: No Do you have any diarrhea?: No Are you experiencing any unusual bleeding?: No Do you have any muscle aches/pain?: No Do you have any abdominal pain?: Yes Are you experiencing loss of taste or smell?: No Other Medical History Have you received the Flu Vaccine for this season: Yes Have you received the Pneumonia Vaccine: No Meds Home Medications and Allergies Home Medications ?Medication ?Instructions ?Recorded ?Confirmed ?Type aspirin 81 mg tablet,delayed 81 mg PO DAILY #30 tabs 03/22/24 05/17/24 Rx release (Adult Low Dose Aspirin) hydrochlorothiazide 25 mg tablet 25 mg PO DAILY htn #90 tabs 05/10/24 05/17/24 Rx New Prescriptions to Start Prescriptions: Allergies Allergy/AdvReac Type Severity Reaction Status Date / Time No Known Allergies Allergy Verified 05/10/24 14:33 Exam Data for Last 24 hours Vital signs and Labs for Last 24 Hours: Temp Pulse Resp BP Pulse Ox O2 Del Method 98.0 F 60 16 95/55 L 98 Room Air 05/17/24 21:04 05/17/24 21:04 05/17/24 21:04 05/17/24 21:04 05/17/24 21:04 05/17/24 21:04 Laboratory Results - last 24 hr 05/17/24 18:45: WBC 3.7 L, RBC 3.38 L, Hgb 10.8 L, Hct 32.6 L, MCV 96.2 H, MCH 32.0 H, MCHC 33.3, RDW 14.1, Plt Count 172, MPV 9.7, Neut % (Auto) 89.4 H, Lymph % (Auto) 6.3 L, [place] % (Auto) 2.3, Eos % (Auto) 1.2, Baso % (Auto) 0.7, Neut # (Auto) 3.3, Lymph # (Auto) 0.2 L, [place] # (Auto) 0.1, Eos # (Auto) 0.0, Baso # (Auto) 0.0, Total Counted 100, Neutrophils % (Manual) 89 H, Lymphocytes % (Manual) 7 L, Monocytes % (Manual) 3, Eosinophils % (Manual) 1, Platelet Estimate Normal, Hypochromasia 1+, Sodium 136, Potassium 3.6, Chloride 108 H, Carbon Dioxide 22, Anion Gap 9.6, BUN 26 H, Creatinine 1.10, Estimated Creat Clear 55, Estimated GFR 63, Est GFR ( Amer) 76, Glucose 86, Calcium 8.3 L, Total Bilirubin 5.6 H, GGT 226 H, AST 72 H, ALT 77, Alkaline Phosphatase 329 H, Total Protein 6.4, Albumin 3.3 L, Globulin 3.1, Albumin/Globulin Ratio 1.1, Lipase 3757 H I & O for Last 24 hours: Intake & Output 05/14/24 05/15/24 05/16/24 05/17/24 23:59 23:59 23:59 23:59 Weight 85.275 kg *Routine HEENT Exam Head: Present normocephalic Eye: Present EOMI and normal accommodation ENT: Present mucous membranes moist *Routine Neck Exam Neck: Present supple and full ROM *Routine Respiratory Exam Respiratory: Present decreased breath sounds and diminished air movement *Routine Cardiovascular Exam Cardiovascular: Present RRR *Routine Abdominal Exam Abdominal: Present soft, distended and guarding Comments: TTP RUQ and epigastric without rebound *Routine Rectal Exam Rectal:: deferred *Routine Genitalia Exam Genitalia:: deferred *Routine Extremities Exam Extremities: Present full ROM *Routine Neurological Exam Neurological: Present alert and oriented X3 Assessment and Plan *Assessment and plan (1) Choledocholithiasis: Status: Acute Category: Medical Code(s): K80.50 - Calculus of bile duct without cholangitis or cholecystitis without obstruction (2) Pancreatitis: Status: Acute Category: Medical Code(s): K85.90 - Acute pancreatitis without necrosis or infection, unspecified (3) Postoperative abdominal pain: Status: Acute Category: Medical Code(s): R10.9 - Unspecified abdominal pain; G89.18 - Other acute postprocedural pain (4) Pleural effusion: Status: Acute Category: Medical Code(s): J90 - Pleural effusion, not elsewhere classified (5) Dehydration: Status: Acute Category: Medical Code(s): E86.0 - Dehydration (6) Ascites: Status: Acute Category: Medical Code(s): R18.8 - Other ascites (7) Hyperbilirubinemia: Status: Acute Category: Medical Code(s): E80.6 - Other disorders of bilirubin metabolism (8) Hyperlipidemia: Status: Acute Qualifiers: Hyperlipidemia type: mixed hyperlipidemia Qualified Code(s): E78.2 - Mixed hyperlipidemia Category: Medical Code(s): E78.5 - Hyperlipidemia, unspecified (9) Coronary artery disease: Status: Acute Qualifiers: Associated angina: without angina Coronary Disease-Associated Artery/Lesion type: [place] artery [place] vs. transplanted heart: [place] heart Qualified Code(s): I25.10 - Atherosclerotic heart disease of [place] coronary artery without angina pectoris Category: Medical Code(s): I25.10 - Atherosclerotic heart disease of [place] coronary artery without angina pectoris Plan Patient presents to hospital complaining of abdominal discomfort, nausea, vomiting over the last 2.5 days. Patient describes abdominal discomfort as 8/10, constant, sharp, focused in right upper quadrant/epigastric region, nonradiating, occurring with nausea/vomiting. Patient also admits to intermittent chills over the past few days. Denies fevers, chest pain, shortness of breath, cough, ataxia, blurry vision, headaches. Patient on bisoprolol and verapamil as outpatient, but not sure why. Patient denies any knowledge of previous heart issues. CT abdomen/pelvis shows signs of ascites, and pleural effusions. WBC 3.7, total bili 5.6, GGT 226, AST 72, alk phos 329, albumin 3.3, lipase 3757. Patient admitted for acute choledocholithiasis versus acute pancreatitis evaluation. Problems as listed below: Labs reviewed at time of admission: -NA 136, K3.6, CL 108, CO2 22, BUN 26, CR 1.1. I will repeat BMP, mag in AM. ? WBC 3.7, Hg 10.8, total bili 5.6, GGT 226, AST 72, alk phos 329, albumin 3.3, lipase 3757. Acute pancreatitis versus acute choledocholithiasis: ? Patient underwent cholecystectomy [address] abdomen/pelvis shows abdominal wall inflammation and pleural effusions; possibly indicative of undiagnosed CHF. Patient's total bili, lipase elevated as mentioned above. I will repeat total bili and lipase test in AM. Place patient on clears until midnight then n.p.o. for ERCP evaluation by GI. GI consulted by emergency room at time of admission. As needed pain meds. 75 cc/h normal saline maintenance IV fluids with 40 mEq KCl. Start empirical IV Zosyn for possible upper interabdominal infection coverage. I reviewed CT abdomen/pelvis noting no pseudocyst, phlegmon or necrotizing pancreatitis per my review. RUQ ultrasound ordered by ED at time of admission. Will also order blood cultures and urine analysis/urine culture. Dehydration secondary to acute pancreatitis: ? Cautious rehydration as noted above and acute pancreatitis section. Possible CHF diastolic heart failure: ?Reviewed 03/14 echocardiogram normal with grade 2 diastolic dysfunction and mild aortic stenosis. Patient does not appear to be in decompensated heart failure. Cautious fluid management throughout hospitalization. Will repeat echocardiogram. Will also consult cardiology given findings on CT abdomen/pelvis today of possible ascites/pleural effusions related to diastolic dysfunction. Hypertension: Hold hydrochlorothiazide 25 mg p.o. daily given patient hypotensive currently with low normal BP 95/55 CAD: Hold aspirin given ERCP planned for tomorrow. PPx: Lovenox 40 mg subcu daily CODE STATUS full FEN: Clears till midnight then n.p.o. after midnight. MDM [place]: Moderate. Patient suffering from elevated lipase related to acute pancreatitis versus acute cholecystitis with systemic symptoms of nausea, vomiting, weakness. Data: High. See data section above. I spoke with the emergency room doc and we agree patient requires admission for elevated lipase, nausea, vomiting, abdominal pain, and elevated transaminases. Risk: Moderate. I made decision to admit patient to hospital secondary to acute pancreatitis/acute cholecystitis evaluation. 35 minutes of time spent on patient by Dr. Boyce 05/17/2024
[2024-05-17 21:55] VITALS: BMI 25.0
[2024-05-17] MEDS: PIPERACILLIN/TAZO 4.5 GM in 0.9 % SODIUM CHLORIDE 100 ML IV (22:23)
[2024-05-18] VITALS (17 sets, daily range): BP systolic 110–141; BP diastolic 54–79; PULSE 60–68; RESP 16–20; TEMP 36.2–37; O2SAT 96–99; BMI 25.0
--- NOTE | 2024-05-18 01:02 | CA_ITS ---
APPROVED REPORT EXAM: Comprehensive 2D, Doppler, and color-flow Echocardiogram Legal Secretary: Aysha Kaur CRT Ht: 6 ft 0 in Wt: 184lbs BSA: 2.06 BP: 95/55 mmHg Indications: cholecystitis, pancreatitis, pleural effusion, htn, hld M-Mode Dimensions RVDd 2.46 cm (0.9-2.6) LA Diam 3.50 cm (1.9-4.0) LVDd 4.56 cm (3.5-5.7) LVDs 2.96 cm (3.5-5.7) IVSd 1.53 cm (0.6-1.1) PWd 1.01 cm (0.6-1.1) EF (Teich) 64.50% FS 35.10% EDV (Teich) 95.40 mL TAPSE 1.15 (<1.7) ESV (Teich) 33.90 mL LV Diastology E Decel Time 203 (160-240 msec) E/A Ratio 1.46 MED A' 6.40 cm/s LAT A' 4.50 cm/s Aortic Valve PREMA Index 0.57 cm2/m2 AoV Peak [place]. 272.0 (50-130 cm/s) AO Peak GR. 29.50 mmHg AO Mean GR. 17.40 (<5 mmHg) AO VTI 64.0 (18-25 cm) PREMA (VTI) 1.20 (2.5-4.5 cm2) Mitral Valve MV A Velocity 74.0 (40-130 cm/s) E/A Ratio 1.46 MV Mean Gr. 2.00 (<2mmHg) MV PHT 73.0 ms Pulmonary Valve PV Peak Velocity 89.0 (50-150 cm/s) Tricuspid Valve TR P. Velocity 405.00 cm/s RAP Estimate 10.00 mmHg RVSP 75.50 mmHg Left Ventricle The left ventricle is normal size. The left ventricular systolic function is normal. The left ventricular ejection fraction is within the normal range. There is increased LV wall thickness. There is normal LV segmental wall motion. Grade 2 diastolic dysfunction is present. LVEF is 55%. Right Ventricle The right ventricle is normal size. The right ventricular systolic function is normal. Atria Left atrium is mildly dilated. Right atrium is mildly dilated. There is no Doppler evidence of interatrial shunt. Aortic Valve The aortic valve is moderately thickened. Moderate aortic stenosis. PREMA by continuity equation is 1.3 cm2. Peak velocity 2.7 m/s. Mean AV gradient 17 mmHg. Max AV gradient 28 mmHg. DI 0.34. Mild aortic regurgitation. Mitral Valve The mitral valve leaflets are mildly thickened. No evidence of mitral valve stenosis. Mild to moderate mitral regurgitation. Tricuspid Valve Tricuspid valve is grossly normal in structure and function. Mild tricuspid regurgitation. RVSP is 40-45 mmHg. Pulmonic Valve The pulmonary valve is normal in structure. Trace pulmonic regurgitation. Great Vessels The aortic root is normal in size. IVC is normal in size and collapses >50% with inspiration. Pericardium There is no pericardial effusion. Other Information Study Quality: Fair Conclusion Normal biventricular systolic function. Mild biatrial dilation. Moderate (PREMA by continuity equation is 1.3 cm2. Peak velocity 2.7 m/s. Mean AV gradient 17 mmHg. Max AV gradient 28 mmHg. DI 0.34). Mild to moderate MR. Mild TR. RVSP 40-45 mmHg. Electronically signed by : Carmencita Jesus MD 05/18/2024 13:29:09
[2024-05-18] MEDS: 0.9% NaCl w/40mEq KCL 1,000 ML 75 ML IV ×2 (01:26→16:00)
[2024-05-18] MEDS: PIPERACILLIN/TAZO 4.5 GM in 0.9 % SODIUM CHLORIDE 100 ML IV ×3 (03:53→16:20)
--- NOTE | 2024-05-18 05:01 | PC.NURSE ---
Patient was a new admit this shift. Patient has had no c/o of pain thus far in shift. Pt remains A/O x4. RA with O2 sats >90%. Patient ambulates with standby assist to bathroom. Call light within reach.
[2024-05-18 05:45] LABS: Basophils # 0.2 K/mm3 (0-0.2); Basophils % 1.7 % (0.1-2.0); Eosinophils # 0.1 K/mm3 (0.0-0.4); Eosinophils % 0.5 % (0.1-12.0); Hematocrit 30.7 % (42.0-52.0); Hemoglobin 10.2 g/dL (14.1-18.0); Lymphocytes # 0.3 K/mm3 (0.7-4.5); Lymphocytes % 3.6 % (10-50); Mean Corpuscular HGB Conc 33.3 g/dL (31.8-35.4); Mean Corpuscular Hemoglobin 32.4 pg (27.0-31.2); Mean Corpuscular Volume 97.1 fl (80-94); Mean Platelet Volume 9.6 fl (7.4-10.4); Monocytes # 0.3 K/mm3 (0.1-1.0); Monocytes % 3.8 % (1.7-9.3); Neutrophils % 90.3 % (37.0-80.0); Platelet Count 138 K/mm3 (142-424); Red Blood Count 3.16 M/mm3 (4.60-6.20); Red Cell Distribution Width 14.4 % (11.5-17.5); White Blood Count 8.9 K/mm3 (4.8-10.8)
[2024-05-18 05:55] LABS: MANUAL DIFFERENTIAL MANUAL DIFFERENTIAL (MANUAL DIFF)
[2024-05-18 05:58] LABS: Anion Gap 11.2 mEq/L (5-15); Blood Urea Nitrogen 29 mg/dl (9-20); Calcium 8.1 mg/dl (8.4-10.2); Carbon Dioxide 23 mmol/L (22.0-30.0); Chloride 107 mmol/L (98-107); Creatinine Clearance Estimated 49 mL/min (50-200); Estimated Glomerular Filt Rate 57 ml/min (>60); GFR (African American) 69 ML/MIN (>60); Glucose 74 mg/dl (74-100); Magnesium 1.7 mg/dl (1.6-2.3); Potassium 4.2 mmoL/L (3.5-5.1); Sodium 137 mmol/L (136-145)
--- NOTE | 2024-05-18 06:00 | FL_ITS ---
FINAL REPORT CLINICAL HISTORY: Bile duct obstruction FINDINGS: FLUOROSCOPY LESS THAN 1 HOUR HISTORY: Fluoroscopy guidance. Fluoroscopic guidance was provided for ERCP. 2 images show multiple filling defects within a normal caliber common bile duct which could represent debris or stones. A total of 2.4 minutes of fluoroscopy time were used. Total DAP: 83.60 mGy IMPRESSION: As above. Reviewed, Interpreted and Dictated by Mara Merida MD Transcribed by Patricia Nation Authenticated and . [facility]
[2024-05-18 06:16] LABS: Procalcitonin 2.24 ng/mL (0.0-2.0)
--- NOTE | 2024-05-18 07:07 | P.CONS_ITS ---
History of Present Illness *Admission Date: 05/17/24 *Reason for visit:: Postcholecystectomy with ascites and jaundice. . . *History of present illness: Patient is an 88-year-old male who underwent laparoscopic cholecystectomy with Dr. Aleman on 04/05/2024 at which time he was found to have contraction and hardening of the gallbladder wall with inflammatory mass to the right lateral margin of the apparent cystic duct and node of [place]. There was some profound inflammation. There is also the possibility of remaining gallbladder tissue (possible partial cholecystectomy) noted. He had followed up postoperatively and was noted to have slight elevation of bilirubin of 2.0 on 04/11/2024, however this normalized with subsequent blood work. He presented to the emergency department on 05/17/2024 with 2-1/2-day history of abdominal discomfort rated as an 8 out of 10 described as constant, sharp, and focused in the right upper quadrant and epigastric region. He had associated nausea and vomiting with some chills. He underwent evaluation in the emergency department which reveals normal white blood cell count. Bilirubin of 5.6, GGT 226, AST 72, alkaline phosphatase 329, lipase 3757. He underwent CT scan which reveals anasarca, ascites, interstitial edema. Discussion was held with gastroenterology for possible ERCP. He was admitted for inpatient management for ERCP. Gastroenterology consulted general surgery due to ascites, jaundice, and biliary pancreatitis. [facility] Disclaimer: The information contained in this section may have been updated after the patient was seen, as this information can be updated by other users. Medical History (Updated 05/18/24 @ 10:49 by Gwen Mcghee APRN) (HFpEF) heart failure with preserved ejection fraction Diastolic dysfunction Hyperbilirubinemia Ascites Pleural effusion Choledocholithiasis Pancreatitis Dehydration Hyperlipidemia Coronary artery disease Abnormal ECG Abnormal findings on diagnostic imaging of heart and coronary circulation Renal insufficiency Hypertension Surgical History History of colonoscopy H/O shoulder surgery Family History Mother Diabetes Brother Diabetes Sister Diabetes Social History (Updated 05/17/24 @ 21:23 by Jessica Valverde RN) Smoking Status: Never smoker alcohol intake: never substance use type: denies use current occupational status: retired Travel in the last 8 weeks: None household members: none housing: house lives independently: Yes marital status: education level: college shelter: No caffeine: Yes special elmer needs: No agree to transfusion: No do you feel safe at home: Yes victim of physical abuse: No victim of emotional abuse: No victim of sexual abuse: No would you like helpful sources: No Have you lived/traveled outside US in past 30 days?: No Contact w/someone who lives/traveled outside US past 30 days?: No Exposure to someone with infectious disease in past 14 days?: No Do you have a fever (greater than 100.4 F or 38 C)?: No Have you tested positive for COVID-19: No Exposed to someone with COVID-19 in past 14 days?: No Do you have a sore throat?: No Do you have a cough?: No Do you have any weakness?: No Do you have any diarrhea?: No Are you experiencing any unusual bleeding?: No Do you have any muscle aches/pain?: No Do you have any abdominal pain?: Yes Are you experiencing loss of taste or smell?: No Meds Home Medications and Allergies Home Medications ?Medication ?Instructions ?Recorded ?Confirmed ?Type aspirin 81 mg tablet,delayed 81 mg PO DAILY #30 tabs 03/22/24 05/17/24 Rx release (Adult Low Dose Aspirin) bisoprolol fumarate 5 mg tablet 5 mg PO DAILY 05/18/24 05/18/24 History hydrochlorothiazide 25 mg tablet 25 mg PO DAILY 05/18/24 05/17/24 History verapamil 240 mg 24 hr 240 mg PO DAILY 05/18/24 05/18/24 History capsule,extended release New Prescriptions to Start Prescriptions: Allergies Allergy/AdvReac Type Severity Reaction Status Date / Time No Known Allergies Allergy Verified 05/10/24 14:33 Exam (Inpt) Vital signs and Labs for Last 24 Hours: Temp Pulse Resp BP Pulse Ox O2 Del Method 97.6 F 60 16 115/55 L 98 Room Air 05/18/24 04:00 05/18/24 04:00 05/18/24 04:00 05/18/24 04:00 05/18/24 04:00 05/18/24 06:49 Laboratory Results - last 24 hr 05/17/24 18:45: WBC 3.7 L, RBC 3.38 L, Hgb 10.8 L, Hct 32.6 L, MCV 96.2 H, MCH 32.0 H, MCHC 33.3, RDW 14.1, Plt Count 172, MPV 9.7, Neut % (Auto) 89.4 H, Lymph % (Auto) 6.3 L, [place] % (Auto) 2.3, Eos % (Auto) 1.2, Baso % (Auto) 0.7, Neut # (Auto) 3.3, Lymph # (Auto) 0.2 L, [place] # (Auto) 0.1, Eos # (Auto) 0.0, Baso # (Auto) 0.0, Total Counted 100, Neutrophils % (Manual) 89 H, Lymphocytes % (Manual) 7 L, Monocytes % (Manual) 3, Eosinophils % (Manual) 1, Platelet Estimate Normal, Hypochromasia 1+, Sodium 136, Potassium 3.6, Chloride 108 H, Carbon Dioxide 22, Anion Gap 9.6, BUN 26 H, Creatinine 1.10, Estimated Creat Clear 55, Estimated GFR 63, Est GFR ( Amer) 76, Glucose 86, Calcium 8.3 L , Total Bilirubin 5.6 H, GGT 226 H, AST 72 H, ALT 77, Alkaline Phosphatase 329 H , Total Protein 6.4, Albumin 3.3 L, Globulin 3.1, Albumin/Globulin Ratio 1.1, L ipase 3757 H 05/18/24 05:35: WBC 8.9 D, RBC 3.16 L, Hgb 10.2 L, Hct 30.7 L, MCV 97.1 H, MCH 32.4 H, MCHC 33.3, RDW 14.4, Plt Count 138 L, MPV 9.6, Neut % (Auto) 90.3 H, L ymph % (Auto) 3.6 L, [place] % (Auto) 3.8, Eos % (Auto) 0.5, Baso % (Auto) 1.7, N eut # (Auto) 8.0 H, Lymph # (Auto) 0.3 L, [place] # (Auto) 0.3, Eos # (Auto) 0.1, Baso # (Auto) 0.2, Sodium 137, Potassium 4.2, Chloride 107, Carbon Dioxide 23, Anion Gap 11.2, BUN 29 H, Creatinine 1.20, Estimated Creat Clear 49, Estimated GFR 57 L, Est GFR ( Amer) 69, Glucose 74, Calcium 8.1 L, Magnesium 1.7, P rocalcitonin 2.24 H I & O for Labs for Last 24 Hours: Intake & Output 05/15/24 05/16/24 05/17/24 05/18/24 11:59 11:59 11:59 11:59 Intake Total 350 / 350 Output Total 0 / 0 Balance 350 / 350 Weight 184 lb 9.594 oz Constitutional: no acute distress Respiratory: Present decreased breath sounds Cardiac: Present Reg Rate and Rhythm GI: Present soft and tenderness Comments:: Mild tenderness in the epigastrium without guarding or rebound Rectal (male): Present deferred Skin: Present jaundice Results Labs 05/18/24 05:35 05/18/24 05:35 Labs: Laboratory Results - last 24 hr 05/17/24 18:45: WBC 3.7 L, RBC 3.38 L, Hgb 10.8 L, Hct 32.6 L, MCV 96.2 H, MCH 32.0 H, MCHC 33.3, RDW 14.1, Plt Count 172, MPV 9.7, Neut % (Auto) 89.4 H, Lymph % (Auto) 6.3 L, [place] % (Auto) 2.3, Eos % (Auto) 1.2, Baso % (Auto) 0.7, Neut # (Auto) 3.3, Lymph # (Auto) 0.2 L, [place] # (Auto) 0.1, Eos # (Auto) 0.0, Baso # (Auto) 0.0, Total Counted 100, Neutrophils % (Manual) 89 H, Lymphocytes % (Manual) 7 L, Monocytes % (Manual) 3, Eosinophils % (Manual) 1, Platelet Estimate Normal, Hypochromasia 1+, Sodium 136, Potassium 3.6, Chloride 108 H, Carbon Dioxide 22, Anion Gap 9.6, BUN 26 H, Creatinine 1.10, Estimated Creat Clear 55, Estimated GFR 63, Est GFR ( Amer) 76, Glucose 86, Calcium 8.3 L , Total Bilirubin 5.6 H, GGT 226 H, AST 72 H, ALT 77, Alkaline Phosphatase 329 H , Total Protein 6.4, Albumin 3.3 L, Globulin 3.1, Albumin/Globulin Ratio 1.1, L ipase 3757 H 05/18/24 05:35: WBC 8.9 D, RBC 3.16 L, Hgb 10.2 L, Hct 30.7 L, MCV 97.1 H, MCH 32.4 H, MCHC 33.3, RDW 14.4, Plt Count 138 L, MPV 9.6, Neut % (Auto) 90.3 H, L ymph % (Auto) 3.6 L, [place] % (Auto) 3.8, Eos % (Auto) 0.5, Baso % (Auto) 1.7, N eut # (Auto) 8.0 H, Lymph # (Auto) 0.3 L, [place] # (Auto) 0.3, Eos # (Auto) 0.1, Baso # (Auto) 0.2, Sodium 137, Potassium 4.2, Chloride 107, Carbon Dioxide 23, Anion Gap 11.2, BUN 29 H, Creatinine 1.20, Estimated Creat Clear 49, Estimated GFR 57 L, Est GFR ( Amer) 69, Glucose 74, Calcium 8.1 L, Magnesium 1.7, P rocalcitonin 2.24 H Assessment and Plan *Assessment and plan (1) Hyperbilirubinemia: Status: Acute Category: Medical Code(s): E80.6 - Other disorders of bilirubin metabolism Plan Gastroenterology involved. Needs ERCP to assess biliary tree anatomy for obstruction or possible cystic duct leak.
[2024-05-18 08:19] LABS: Lymphocytes % 10 % (10-50); Monocytes % 2 % (2-9); Neutrophils % 88 % (42-76); Platelet Estimate Normal; RBC Morphology Normal; Total Cells Counted 100
[2024-05-18] MEDS: ENOXAPARIN 40MG/0.4ML SYRINGE 40 MG SUBCUT (08:53)
--- NOTE | 2024-05-18 08:54 | HMH.PHAINT1 ---
Pharmacy Intervention Comments: MEDICATION RECONCILIATION COMPLETED ON PATIENT USING EXTERNAL FILL HISTORY FROM PHARMACY AND LIST FROM CARDIOLOGY OFFICE. -SHELTON ESPOSITO, [id number]
[2024-05-18 08:59] LABS: Albumin Level 3.2 g/dl (3.5-5.0)
[2024-05-18 09:02] LABS: Alanine Aminotransferase 71 U/L (12-78); Alkaline Phosphatase 315 U/L (38-126); Aspartate Amino Transferase 60 U/L (17-59); Bilirubin, Conjugated 3.6 mg/dL (0.0-0.3); Bilirubin,Direct 5.5 mg/dl (0.0-0.4); Bilirubin,Indirect 1.3 mg/dL (0.0-0.9); Bilirubin,Total 6.8 mg/dl (0.2-1.3); Bilirubin,Unconjugated 1.3 mg/dL (0.0-1.1); Lipase 462 U/L (23-300); Total Protein,Serum 6.4 g/dl (6.3-8.2)
--- NOTE | 2024-05-18 10:32 | P.CONCA_ITS ---
History of Present Illness History of Present Illness Consult date: 05/18/24 Requesting physician: Ruiz Roberto Consult reason: congestive heart failure and known to you Chief complaint: abdominal pain History of present illness: This is an 88-year-old gentleman who presented to the emergency department with abdominal pain for approximately 2-1/2 days prior to admission. The patient states that this was a constant sharp pain in the right upper quadrant and epigastric region. He rated this an 8 out of 10. This pain was associated with nausea and vomiting. He also had some chills intermittently. The patient states that he has not been able to eat or drink anything for the last 2 or 3 days due to the abdominal pain and associated nausea and vomiting. He denies any chest pain or shortness of breath. He denies any lower extremity edema. He denied any fever, constipation, diarrhea, PND or orthopnea. The patient had a recent laparoscopic cholecystectomy. He hide contraction and hardening of the gallbladder wall with inflammatory mass to the right lateral margin and cystic duct with a node of calot. The patient had profound inflammation at the time of his surgery. Upon arrival to the emergency department here his bilirubin was elevated at 5.6. His GGT was 226, AST 72, alk phos 329 and lipase 3757. GI and surgery have been consulted and the patient will undergo ERCP today. Cardiology was consulted due to CTA of the abdomen showing new onset bilateral pleural effusions. [facility] Disclaimer: The information contained in this section may have been updated after the patient was seen, as this information can be updated by other users. Medical History (Updated 05/18/24 @ 10:49 by Gwen Mcghee APRN) (HFpEF) heart failure with preserved ejection fraction Diastolic dysfunction Hyperbilirubinemia Ascites Pleural effusion Choledocholithiasis Pancreatitis Dehydration Hyperlipidemia Coronary artery disease Abnormal ECG Abnormal findings on diagnostic imaging of heart and coronary circulation Renal insufficiency Hypertension Surgical History History of colonoscopy H/O shoulder surgery Family History Mother Diabetes Brother Diabetes Sister Diabetes Social History (Updated 05/17/24 @ 21:23 by Jessica Valverde RN) Smoking Status: Never smoker alcohol intake: never substance use type: denies use current occupational status: retired Travel in the last 8 weeks: None household members: none housing: house lives independently: Yes marital status: education level: college halfway: No caffeine: Yes special emler needs: No agree to transfusion: No do you feel safe at home: Yes victim of physical abuse: No victim of emotional abuse: No victim of sexual abuse: No would you like helpful sources: No Have you lived/traveled outside [place] in past 30 days?: No Contact w/someone who lives/traveled outside US past 30 days?: No Exposure to someone with infectious disease in past 14 days?: No Do you have a fever (greater than 100.4 F or 38 C)?: No Have you tested positive for COVID-19: No Exposed to someone with COVID-19 in past 14 days?: No Do you have a sore throat?: No Do you have a cough?: No Do you have any weakness?: No Do you have any diarrhea?: No Are you experiencing any unusual bleeding?: No Do you have any muscle aches/pain?: No Do you have any abdominal pain?: Yes Are you experiencing loss of taste or smell?: No Review of Systems Review of Systems Review of systems:: pertinent systems reviewed and negative unless documented below Constitutional Constitutional: Reports system reviewed and no additional complaints, except as documented and Reports chills Eyes Eyes: Reports system reviewed and no additional complaints, except as documented ENT Ears, Nose, Mouth, and Throat: Reports system reviewed and no additional complaints, except as documented *Cardiovascular Cardiovascular: Reports system reviewed and no additional complaints, except as documented, Denies chest pain and Denies dyspnea *Respiratory Respiratory: Reports system reviewed and no additional complaints, except as documented and Denies dyspnea *Gastrointestinal Gastrointestinal: Reports system reviewed and no additional complaints, except as documented, Reports abdominal pain, Reports nausea and Reports vomiting *Genitourinary Genitourinary: Reports system reviewed and no additional complaints, except as documented *Musculoskeletal Musculoskeletal: Reports system reviewed and no additional complaints, except as documented Integumentary/Breasts Skin/Breast: Reports system reviewed and no additional complaints, except as documented *Neurologic Neurologic: Reports system reviewed and no additional complaints, except as documented Psychiatric Psychiatric: Reports system reviewed and no additional complaints, except as documented Endocrine Endocrine: Reports system reviewed and no additional complaints, except as documented Hematologic/Lymphatic Hematologic/Lymphatic: Reports system reviewed and no additional complaints, except as documented Allergic/Immunologic Allergic/Immunologic: Reports system reviewed and no additional complaints, except as documented Exam Data for Last 24 hours Vital signs and Labs for Last 24 Hours: Temp Pulse Resp BP Pulse Ox O2 Del Method 97.6 F 60 16 115/55 L 98 Room Air 05/18/24 04:00 05/18/24 04:00 05/18/24 04:00 05/18/24 04:00 05/18/24 04:00 05/18/24 09:00 Laboratory Results - last 24 hr 05/17/24 18:45: WBC 3.7 L, RBC 3.38 L, Hgb 10.8 L, Hct 32.6 L, MCV 96.2 H, MCH 32.0 H, MCHC 33.3, RDW 14.1, Plt Count 172, MPV 9.7, Neut % (Auto) 89.4 H, Lymph % (Auto) 6.3 L, [place] % (Auto) 2.3, Eos % (Auto) 1.2, Baso % (Auto) 0.7, Neut # (Auto) 3.3, Lymph # (Auto) 0.2 L, [place] # (Auto) 0.1, Eos # (Auto) 0.0, Baso # (Auto) 0.0, Total Counted 100, Neutrophils % (Manual) 89 H, Lymphocytes % (Manual) 7 L, Monocytes % (Manual) 3, Eosinophils % (Manual) 1, Platelet Estimate Normal, Hypochromasia 1+, Sodium 136, Potassium 3.6, Chloride 108 H, Carbon Dioxide 22, Anion Gap 9.6, BUN 26 H, Creatinine 1.10, Estimated Creat Clear 55, Estimated GFR 63, Est GFR ( Amer) 76, Glucose 86, Calcium 8.3 L , Total Bilirubin 5.6 H, GGT 226 H, AST 72 H, ALT 77, Alkaline Phosphatase 329 H , Total Protein 6.4, Albumin 3.3 L, Globulin 3.1, Albumin/Globulin Ratio 1.1, Lipase 3757 H 05/18/24 05:35: WBC 8.9 D, RBC 3.16 L, Hgb 10.2 L, Hct 30.7 L, MCV 97.1 H, MCH 32.4 H, MCHC 33.3, RDW 14.4, Plt Count 138 L, MPV 9.6, Neut % (Auto) 90.3 H, Lymph % (Auto) 3.6 L, [place] % (Auto) 3.8, Eos % (Auto) 0.5, Baso % (Auto) 1.7, Neut # (Auto) 8.0 H, Lymph # (Auto) 0.3 L, [place] # (Auto) 0.3, Eos # (Auto) 0.1, Baso # (Auto) 0.2, Total Counted 100, Neutrophils % (Manual) 88 H, Lymphocytes % (Manual) 10, Monocytes % (Manual) 2, Platelet Estimate Normal, RBC Morphology Normal, Sodium 137, Potassium 4.2, Chloride 107, Carbon Dioxide 23, Anion Gap 11.2, BUN 29 H, Creatinine 1.20, Estimated Creat Clear 49, Estimated GFR 57 L, Est GFR ( Amer) 69, Glucose 74, Calcium 8.1 L, Magnesium 1.7, Total Bilirubin 6.8 H, Direct Bilirubin 5.5 H, Conjugated Bilirubin 3.6 H, Indirect Bilirubin 1.3 H, Unconjugated Bilirubin 1.3 H, AST 60 H, ALT 71, Alkaline Phosphatase 315 H, Total Protein 6.4, Albumin 3.2 L, Lipase 462 H, Procalcitonin 2.24 H I & O for Last 24 hours: Intake & Output 05/15/24 05/16/24 05/17/24 05/18/24 23:59 23:59 23:59 23:59 Intake Total 350 / 350 Output Total 0 / 0 Balance 350 / 350 Weight 184 lb 9.6 oz 184 lb 9.594 oz Constitutional Constitutional: no acute distress and average body habitus *Routine HEENT Exam Head: Present normocephalic and atraumatic ENT: Present mucous membranes moist *Routine Neck Exam Neck: Present supple, full ROM and normal carotid upstroke; Absent JVD, carotid bruit or lymphadenopathy *Routine Respiratory Exam Respiratory: Present CTA bilaterally, normal respiratory effort, able to speak in complete sentences and symmetric chest movement *Routine Cardiovascular Exam Cardiovascular: Present RRR, Normal S1 and Normal S2; Absent murmur or gallop *Routine Abdominal Exam Abdominal: Present soft and normoactive bowel sounds; Absent tenderness, distended or organomegaly *Routine Extremities Exam Extremities: Present full ROM, pulses intact and normal capillary refill; Absent cyanosis, clubbing or edema *Routine Skin Exam Skin: Present intact, warm and jaundice; Absent erythema *Routine Neurological Exam Neurological: Present alert, oriented X3 and CN II-XII intact; Absent sensory deficit or motor deficit Routine Psychiatric Exam Psychiatric: Present normal affect Meds Home Medications and Allergies Home Medications ?Medication ?Instructions ?Recorded ?Confirmed ?Type aspirin 81 mg tablet,delayed 81 mg PO DAILY #30 tabs 03/22/24 05/17/24 Rx release (Adult Low Dose Aspirin) bisoprolol fumarate 5 mg tablet 5 mg PO DAILY 05/18/24 05/18/24 History hydrochlorothiazide 25 mg tablet 25 mg PO DAILY 05/18/24 05/17/24 History verapamil 240 mg 24 hr 240 mg PO DAILY 05/18/24 05/18/24 History capsule,extended release New Prescriptions to Start Prescriptions: Allergies Allergy/AdvReac Type Severity Reaction Status Date / Time No Known Allergies Allergy Verified 05/10/24 14:33 Assessment and Plan *Assessment and plan (1) Choledocholithiasis: Status: Acute Category: Medical Code(s): K80.50 - Calculus of bile duct without cholangitis or cholecystitis without obstruction (2) Pancreatitis: Status: Acute Qualifiers: Acute pancreatitis complication: unspecified Chronicity: acute Pancreatitis type: unspecified pancreatitis type Qualified Code(s): K85.90 - Acute pancreatitis without necrosis or infection, unspecified Category: Medical Code(s): K85.90 - Acute pancreatitis without necrosis or infection, unspecified (3) Dehydration: Status: Acute Category: Medical Code(s): E86.0 - Dehydration (4) Pleural effusion: Status: Acute Category: Medical Code(s): J90 - Pleural effusion, not elsewhere classified (5) Ascites: Status: Acute Qualifiers: Ascites type: other type Qualified Code(s): R18.8 - Other ascites Category: Medical Code(s): R18.8 - Other ascites (6) Hyperbilirubinemia: Status: Acute Category: Medical Code(s): E80.6 - Other disorders of bilirubin metabolism (7) Coronary artery disease: Status: Acute Qualifiers: Associated angina: without angina Coronary Disease-Associated Artery/Lesion type: [place] artery [place] vs. transplanted heart: [place] heart Qualified Code(s): I25.10 - Atherosclerotic heart disease of [place] coronary artery without angina pectoris Category: Medical Code(s): I25.10 - Atherosclerotic heart disease of [place] coronary artery without angina pectoris (8) Hyperlipidemia: Status: Acute Qualifiers: Hyperlipidemia type: mixed hyperlipidemia Qualified Code(s): E78.2 - Mixed hyperlipidemia Category: Medical Code(s): E78.5 - Hyperlipidemia, unspecified (9) Hypertension: Status: Acute Qualifiers: Hypertension type: unspecified Qualified Code(s): I10 - Essential (primary) hypertension Category: Medical Code(s): I10 - Essential (primary) hypertension (10) Postoperative abdominal pain: Status: Acute Category: Medical Code(s): R10.9 - Unspecified abdominal pain; G89.18 - Other acute postprocedural pain (11) Diastolic dysfunction: Status: Acute Category: Medical Code(s): I51.89 - Other ill-defined heart diseases Plan Plan: 1. The patient was admitted to the hospital with abdominal pain and nausea and vomiting. He is found to have elevated lipase and bilirubin as well as liver enzymes. The patient is status post recent cholecystectomy now with an elevated bilirubin and lipase. The patient has been consulted by GI/surgery. He is scheduled to undergo ERCP today. 2. The patient had a CTA of the abdomen which did show new onset bilateral pleural effusions and ascites. The patient does have known diastolic dysfunction which may be contributing to the bilateral pleural effusions. He likely has chronic HFpEF. However pancreatitis can also cause such significant inflammation that leads to pleural effusions. He currently denies any shortness of breath or edema. He denies any chest pain. No plans for diuresis at this time as diuretics can worsen the pancreatitis. 3. Stop his HCTZ. 4. His blood pressure is currently well-controlled. Continue bisoprolol and verapamil. If he were to become hypertensive then adjust his bisoprolol and/or verapamil instead of adding back diuretics at this time due to his underlying pancreatitis. 5. Coronary artery disease is present. Recent left cardiac catheterization shows that the patient has mild to moderate coronary artery disease. No plans for invasive left cardiac catheterization at this time. We do recommend aspirin 81 mg daily. 6. His LDL goal is less than 55. Will get a lipid panel in the morning. 7. The patient is average risk from a cardiac standpoint to proceed with ERCP today. Be mindful of fluids during the procedure due to the pleural effusions. As the patient does develop shortness of breath during this hospitalization co nsider low-dose diuretics once his pancreatitis has improved. 8. No further recommendations at this time from a cardiac standpoint. Thank you for the opportunity to participate in the care of this patient. All recommendations and orders are per Dr. Jesus.
--- NOTE | 2024-05-18 11:04 | EXP.ACUTE.PN ---
Subjective *Date: 05/18/24 *Time: 16:06 Interval history: Reports some improvement in abdominal pain today. Still has mild scleral icterus. No nausea or vomiting. No chest pain or shortness of breath. Denies any bowel movement. Stable on room air. N.p.o. pending EGD Medical Exam Vital signs and Labs for Last 24 Hours: Vital Signs Temp Pulse Pulse Resp BP BP Pulse Ox 05/18/24 09:00 05/18/24 08:00 05/18/24 06:49 05/18/24 04:57 05/18/24 04:00 97.6 F 60 16 115/55 L 98 05/18/24 03:00 05/18/24 01:00 05/17/24 23:00 05/17/24 22:40 05/17/24 21:04 98.0 F 60 16 95/55 L 98 05/17/24 20:39 97.8 F 58 L 16 101/54 L 05/17/24 18:50 62 125/62 96 05/17/24 18:14 98.4 F 66 18 134/73 97 O2 Del Method 05/18/24 09:00 Room Air 05/18/24 08:00 Room Air 05/18/24 06:49 Room Air 05/18/24 04:57 Room Air 05/18/24 04:00 Room Air 05/18/24 03:00 Room Air 05/18/24 01:00 Room Air 05/17/24 23:00 Room Air 05/17/24 22:40 Room Air 05/17/24 21:04 Room Air 05/17/24 20:39 Room Air 05/17/24 18:50 Room Air 05/17/24 18:14 Room Air Intake and Output 05/17/24 05/18/24 05/18/24 23:59 07:59 15:59 Intake Total 350 / 350 Output Total 0 / 0 0 / 0 Balance 350 / 350 0 / 350 Intake: Intake, Total IV Amount 350 / 350 0.9% NaCl w/40mEq KCL 1,000 ml 250 / 250 @ 75 mls/hr IV .[id number] MARIE Rx# :[id number] Piperacillin/Tazo 4.5 gm In 0.9 100 / 100 % Sodium Chloride 100 ml @ 200 mls/hr IV Q6H MARIE Rx#: [id number] Output: Output, Urine Amount 0 / 0 0 / 0 Other: Number of Unmeasured Voids 1 1 Weight 83.733 kg 83.733 kg Patient Weight 05/18/24 23:59 Weight 83.733 kg Laboratory Results - last 24 hr 05/17/24 18:45: WBC 3.7 L, RBC 3.38 L, Hgb 10.8 L, Hct 32.6 L, MCV 96.2 H, MCH 32.0 H, MCHC 33.3, RDW 14.1, Plt Count 172, MPV 9.7, Neut % (Auto) 89.4 H, Lymph % (Auto) 6.3 L, [place] % (Auto) 2.3, Eos % (Auto) 1.2, Baso % (Auto) 0.7, Neut # (Auto) 3.3, Lymph # (Auto) 0.2 L, [place] # (Auto) 0.1, Eos # (Auto) 0.0, Baso # (Auto) 0.0, Total Counted 100, Neutrophils % (Manual) 89 H, Lymphocytes % (Manual) 7 L, Monocytes % (Manual) 3, Eosinophils % (Manual) 1, Platelet Estimate Normal, Hypochromasia 1+, Sodium 136, Potassium 3.6, Chloride 108 H, Carbon Dioxide 22, Anion Gap 9.6, BUN 26 H, Creatinine 1.10, Estimated Creat Clear 55, Estimated GFR 63, Est GFR ( Amer) 76, Glucose 86, Calcium 8.3 L, Total Bilirubin 5.6 H, GGT 226 H, AST 72 H, ALT 77, Alkaline Phosphatase 329 H, Total Protein 6.4, Albumin 3.3 L, Globulin 3.1, Albumin/Globulin Ratio 1.1, Lipase 3757 H 05/18/24 05:35: WBC 8.9 D, RBC 3.16 L, Hgb 10.2 L, Hct 30.7 L, MCV 97.1 H, MCH 32.4 H, MCHC 33.3, RDW 14.4, Plt Count 138 L, MPV 9.6, Neut % (Auto) 90.3 H, Lymph % (Auto) 3.6 L, [place] % (Auto) 3.8, Eos % (Auto) 0.5, Baso % (Auto) 1.7, Neut # (Auto) 8.0 H, Lymph # (Auto) 0.3 L, [place] # (Auto) 0.3, Eos # (Auto) 0.1, Baso # (Auto) 0.2, Total Counted 100, Neutrophils % (Manual) 88 H, Lymphocytes % (Manual) 10, Monocytes % (Manual) 2, Platelet Estimate Normal, RBC Morphology Normal, Sodium 137, Potassium 4.2, Chloride 107, Carbon Dioxide 23, Anion Gap 11.2, BUN 29 H, Creatinine 1.20, Estimated Creat Clear 49, Estimated GFR 57 L, Est GFR ( Amer) 69, Glucose 74, Calcium 8.1 L, Magnesium 1.7, Total Bilirubin 6.8 H, Direct Bilirubin 5.5 H, Conjugated Bilirubin 3.6 H, Indirect Bilirubin 1.3 H, Unconjugated Bilirubin 1.3 H, AST 60 H, ALT 71, Alkaline Phosphatase 315 H, Total Protein 6.4, Albumin 3.2 L, Lipase 462 H, Procalcitonin 2.24 H I & O for Labs for Last 24 Hours: Intake & Output 05/15/24 05/16/24 05/17/24 05/18/24 23:59 23:59 23:59 23:59 Intake Total 350 / 350 Output Total 0 / 0 Balance 350 / 350 Weight 83.733 kg 83.733 kg Constitutional: Present no acute distress, average body habitus, chronically ill appearing and cooperative Head: Present atraumatic and normocephalic ENT: Present normal exam Respiratory: Present CTA bilaterally and normal respiratory effort; Absent respiratory distress, rhonchi, stridor, wheezes or crackles Cardiac: Present Reg Rate and Rhythm GI: Present soft, tenderness (Worse in left upper abdomen) and normal bowel sounds; Absent distention Extremities: Present normal inspection and full ROM Skin: Present intact; Absent erythema Neuro: Present Grossly Intact, alert, awake, oriented x 3 and moves all extremities Assessment and Plan *Assessment and plan (1) Choledocholithiasis: Status: Acute Category: Medical Code(s): K80.50 - Calculus of bile duct without cholangitis or cholecystitis without obstruction (2) Pancreatitis: Status: Acute Qualifiers: Acute pancreatitis complication: unspecified Chronicity: acute Pancreatitis type: unspecified pancreatitis type Qualified Code(s): K85.90 - Acute pancreatitis without necrosis or infection, unspecified Category: Medical Code(s): K85.90 - Acute pancreatitis without necrosis or infection, unspecified (3) Postoperative abdominal pain: Status: Acute Category: Medical Code(s): R10.9 - Unspecified abdominal pain; G89.18 - Other acute postprocedural pain (4) Pleural effusion: Status: Acute Category: Medical Code(s): J90 - Pleural effusion, not elsewhere classified (5) Dehydration: Status: Acute Category: Medical Code(s): E86.0 - Dehydration (6) Ascites: Status: Acute Qualifiers: Ascites type: other type Qualified Code(s): R18.8 - Other ascites Category: Medical Code(s): R18.8 - Other ascites (7) Hyperbilirubinemia: Status: Acute Category: Medical Code(s): E80.6 - Other disorders of bilirubin metabolism (8) Hyperlipidemia: Status: Acute Qualifiers: Hyperlipidemia type: mixed hyperlipidemia Qualified Code(s): E78.2 - Mixed hyperlipidemia Category: Medical Code(s): E78.5 - Hyperlipidemia, unspecified (9) Coronary artery disease: Status: Acute Qualifiers: Associated angina: without angina Coronary Disease-Associated Artery/Lesion type: [place] artery [place] vs. transplanted heart: [place] heart Qualified Code(s): I25.10 - Atherosclerotic heart disease of [place] coronary artery without angina pectoris Category: Medical Code(s): I25.10 - Atherosclerotic heart disease of [place] coronary artery without angina pectoris Plan Patient presents to hospital complaining of abdominal discomfort, nausea, vomiting over the last 2.5 days. Patient describes abdominal discomfort as 8/10, constant, sharp, focused in right upper quadrant/epigastric region, nonradiating, occurring with nausea/vomiting. Patient also admits to intermittent chills over the past few days. Denies fevers, chest pain, shortness of breath, cough, ataxia, blurry vision, headaches. Patient on bisoprolol and verapamil as outpatient, but not sure why. Patient denies any knowledge of previous heart issues. CT abdomen/pelvis shows signs of ascites, and pleural effusions. WBC 3.7, total bili 5.6, GGT 226, AST 72, alk phos 329, albumin 3.3, lipase 3757. Patient admitted for acute choledocholithiasis versus acute pancreatitis evaluation. GI and surgery consulted and assisting with care. Plan for ERCP today. Problems addressed as follows: Acute pancreatitis due to acute choledocholithiasis: ? Patient underwent cholecystectomy [address] abdomen/pelvis shows abdominal wall inflammation and pleural effusions; possibly indicative of undiagnosed CHF. -Patient taken for ERCP today, reviewed case with surgery and GI. Found to have common bile duct stones. Removed along with performance of sphincterotomy. Will initiate sips and chips tonight. If tolerates well, advance to clears tomorrow. -Lipase improved to 462 today, liver enzymes still abnormal with bilirubin of 6.8, AST and ALT 60 and 71 respectively. Alkaline phosphatase 315. -White count normal at 8.9. Low concern for infection. Discontinue Zosyn after 2 doses. -Culture still pending -Repeat CBC, CMP, magnesium, lipase and amylase ordered for the morning. Dehydration secondary to acute pancreatitis: ? Cautious rehydration as noted above Possible CHF diastolic heart failure: Hypertension CAD ?Reviewed 03/14 echocardiogram normal with grade 2 diastolic dysfunction and mild aortic stenosis. Patient does not appear to be in decompensated heart failure. - Cautious fluid management throughout hospitalization. repeat echocardiogram: Echo with elevated RVSP. EF preserved at 55% -Hold HCTZ. Blood pressure improved today at 127/66. Initiate Lasix 40 mg IV daily. -Resume aspirin after ERCP PPx: Lovenox 40 mg subcu daily CODE STATUS full FEN: Sips and chips, if does well, advance to clears tomorrow
--- NOTE | 2024-05-18 13:01 | EXP.HP ---
History of Present Illness *Admission Date: 05/17/24 *History of present illness: Patient is an 88-year-old male who underwent laparoscopic cholecystectomy with Dr. Aleman on 04/05/2024 at which time he was found to have contraction and hardening of the gallbladder wall with inflammatory mass to the right lateral margin of the apparent cystic duct and node of Calot. There was some profound inflammation. There is also the possibility of remaining gallbladder tissue (possible partial cholecystectomy) noted. He had followed up postoperatively and was noted to have slight elevation of bilirubin of 2.0 on 04/11/2024, however this normalized with subsequent blood work. He presented to the emergency department on 05/17/2024 with 2-1/2-day history of abdominal discomfort rated as an 8 out of 10 described as constant, sharp, and focused in the right upper quadrant and epigastric region. He had associated nausea and vomiting with some chills. He underwent evaluation in the emergency department which reveals normal white blood cell count. Bilirubin of 5.6, GGT 226, AST 72, alkaline phosphatase 329, lipase 3757. He underwent CT scan which reveals anasarca, ascites, interstitial edema. Discussion was held with gastroenterology for possible ERCP. He was admitted for inpatient management for ERCP. Gastroenterology consulted general surgery due to ascites, jaundice, and biliary pancreatitis. After cholecystectomy, the patient did have a lot of clinical improvement but over the last several days has had pain across the upper abdomen especially on the right side. He has noted darkened urine and at least 1 acholic stool. He reports no fever but has developed icterus and jaundice. [facility] Disclaimer: The information contained in this section may have been updated after the patient was seen, as this information can be updated by other users. Medical History (Updated 05/18/24 @ 13:04 by Kofi Garcia II, MD) (HFpEF) heart failure with preserved ejection fraction Diastolic dysfunction Hyperbilirubinemia Ascites Pleural effusion Choledocholithiasis Pancreatitis Dehydration Hyperlipidemia Coronary artery disease Abnormal ECG Abnormal findings on diagnostic imaging of heart and coronary circulation Renal insufficiency Hypertension Surgical History History of colonoscopy H/O shoulder surgery Family History Mother Diabetes Brother Diabetes Sister Diabetes Social History (Updated 05/17/24 @ 21:23 by Jessica Valverde RN) Smoking Status: Never smoker alcohol intake: never substance use type: denies use current occupational status: retired Travel in the last 8 weeks: None household members: none housing: house lives independently: Yes marital status: education level: college detention: No caffeine: Yes special elmer needs: No agree to transfusion: No do you feel safe at home: Yes victim of physical abuse: No victim of emotional abuse: No victim of sexual abuse: No would you like helpful sources: No Have you lived/traveled outside [place] in past 30 days?: No Contact w/someone who lives/traveled outside US past 30 days?: No Exposure to someone with infectious disease in past 14 days?: No Do you have a fever (greater than 100.4 F or 38 C)?: No Have you tested positive for COVID-19: No Exposed to someone with COVID-19 in past 14 days?: No Do you have a sore throat?: No Do you have a cough?: No Do you have any weakness?: No Do you have any diarrhea?: No Are you experiencing any unusual bleeding?: No Do you have any muscle aches/pain?: No Do you have any abdominal pain?: Yes Are you experiencing loss of taste or smell?: No Other Medical History Have you received the Flu Vaccine for this season: Yes Have you received the Pneumonia Vaccine: No Review of Systems *Neurologic Neurologic: Reports system reviewed and no additional complaints, except as documented Meds Home Medications and Allergies Home Medications ?Medication ?Instructions ?Recorded ?Confirmed ?Type aspirin 81 mg tablet,delayed 81 mg PO DAILY #30 tabs 03/22/24 05/17/24 Rx release (Adult Low Dose Aspirin) bisoprolol fumarate 5 mg tablet 5 mg PO DAILY 05/18/24 05/18/24 History hydrochlorothiazide 25 mg tablet 25 mg PO DAILY 05/18/24 05/17/24 History verapamil 240 mg 24 hr 240 mg PO DAILY 05/18/24 05/18/24 History capsule,extended release New Prescriptions to Start Prescriptions: Allergies Allergy/AdvReac Type Severity Reaction Status Date / Time No Known Allergies Allergy Verified 05/10/24 14:33 Exam Data for Last 24 hours Vital signs and Labs for Last 24 Hours: Temp Pulse Resp BP Pulse Ox O2 Del Method 97.6 F 60 16 115/55 L 98 Room Air 05/18/24 04:00 05/18/24 04:00 05/18/24 04:00 05/18/24 04:00 05/18/24 04:00 05/18/24 09:00 Laboratory Results - last 24 hr 05/17/24 18:45: WBC 3.7 L, RBC 3.38 L, Hgb 10.8 L, Hct 32.6 L, MCV 96.2 H, MCH 32.0 H, MCHC 33.3, RDW 14.1, Plt Count 172, MPV 9.7, Neut % (Auto) 89.4 H, Lymph % (Auto) 6.3 L, Swain % (Auto) 2.3, Eos % (Auto) 1.2, Baso % (Auto) 0.7, Neut # (Auto) 3.3, Lymph # (Auto) 0.2 L, Swain # (Auto) 0.1, Eos # (Auto) 0.0, Baso # (Auto) 0.0, Total Counted 100, Neutrophils % (Manual) 89 H, Lymphocytes % (Manual) 7 L, Monocytes % (Manual) 3, Eosinophils % (Manual) 1, Platelet Estimate Normal, Hypochromasia 1+, Sodium 136, Potassium 3.6, Chloride 108 H, Carbon Dioxide 22, Anion Gap 9.6, BUN 26 H, Creatinine 1.10, Estimated Creat Clear 55, Estimated GFR 63, Est GFR ( Amer) 76, Glucose 86, Calcium 8.3 L, Total Bilirubin 5.6 H, GGT 226 H, AST 72 H, ALT 77, Alkaline Phosphatase 329 H, Total Protein 6.4, Albumin 3.3 L, Globulin 3.1, Albumin/Globulin Ratio 1.1, Lipase 3757 H 05/18/24 05:35: WBC 8.9 D, RBC 3.16 L, Hgb 10.2 L, Hct 30.7 L, MCV 97.1 H, MCH 32.4 H, MCHC 33.3, RDW 14.4, Plt Count 138 L, MPV 9.6, Neut % (Auto) 90.3 H, Lymph % (Auto) 3.6 L, Swain % (Auto) 3.8, Eos % (Auto) 0.5, Baso % (Auto) 1.7, Neut # (Auto) 8.0 H, Lymph # (Auto) 0.3 L, Swain # (Auto) 0.3, Eos # (Auto) 0.1, Baso # (Auto) 0.2, Total Counted 100, Neutrophils % (Manual) 88 H, Lymphocytes % (Manual) 10, Monocytes % (Manual) 2, Platelet Estimate Normal, RBC Morphology Normal, Sodium 137, Potassium 4.2, Chloride 107, Carbon Dioxide 23, Anion Gap 11.2, BUN 29 H, Creatinine 1.20, Estimated Creat Clear 49, Estimated GFR 57 L, Est GFR ( Amer) 69, Glucose 74, Calcium 8.1 L, Magnesium 1.7, Total Bilirubin 6.8 H, Direct Bilirubin 5.5 H, Conjugated Bilirubin 3.6 H, Indirect Bilirubin 1.3 H, Unconjugated Bilirubin 1.3 H, AST 60 H, ALT 71, Alkaline Phosphatase 315 H, Total Protein 6.4, Albumin 3.2 L, Lipase 462 H, Procalcitonin 2.24 H I & O for Last 24 hours: Intake & Output 05/15/24 05/16/24 05/17/24 05/18/24 23:59 23:59 23:59 23:59 Intake Total 350 / 350 Output Total 0 / 0 Balance 350 / 350 Weight 184 lb 9.6 oz 184 lb 9.594 oz *Routine HEENT Exam Head: Present normocephalic Eye: Present conjunctival icterus ENT: Present mucous membranes moist Comments: Visible jaundice *Routine Respiratory Exam Respiratory: Present CTA bilaterally *Routine Cardiovascular Exam Cardiovascular: Present RRR *Routine Abdominal Exam Abdominal: Present tenderness Comments: Tenderness in the epigastrium/right upper quadrant, no masses *Routine Rectal Exam Rectal:: no tenderness *Routine Genitalia Exam Genitalia:: normal male Assessment and Plan *Assessment and plan (1) Biliary acute pancreatitis: Status: Acute Category: Medical Code(s): K85.10 - Biliary acute pancreatitis without necrosis or infection (2) Jaundice: Status: Acute Category: Medical Code(s): R17 - Unspecified jaundice (3) Right upper quadrant abdominal pain: Status: Acute Category: Medical Code(s): R10.11 - Right upper quadrant pain (4) Ascites: Status: Acute Qualifiers: Ascites type: other type Qualified Code(s): R18.8 - Other ascites Category: Medical Code(s): R18.8 - Other ascites Plan 1. Jaundice with pancreatitis. I do suspect biliary pancreatitis secondary to choledocholithiasis with some bile duct obstruction. Certainly if there was a bile duct leak from prior cholecystectomy it would have presented sooner. However, if the patient did have choledocholithiasis with obstruction it may have created a leak early after cholecystectomy. Certainly CBD stones is etiology of pancreatitis. We will proceed with diagnostic/therapeutic ERCP with possible stent placement. I have explained the procedure with risks, benefits and alternatives with the patient. I appreciate general surgery seeing the patient today.
--- NOTE | 2024-05-18 13:08 | P.PCN_ITS ---
[facility] Procedure Note Date: 05/18/24 Time: 14:08 Procedure Note:: ERCP procedure Report: Endoscopic retrograde cholangiopancreatography with biliary sphincterotomy, biliary sphincteroplasty (TTS balloon dilation) and balloon sweep Endoscopist: Kofi Garcia II, MD Referring Physician: Dada Chavez MD Date of Procedure: May 18, 2024 Equipment: Olympus 180 side viewing endoscope duodenoscope Sedation: MAC sedation Indication: Mr. Herrera is an 88-year-old gentleman who presents with upper abdominal pain over the last few days with some nausea and vomiting and describes this as a toothache that will not go away. This is similar to his gallbladder pain and he did have cholecystectomy by Dr. Juan Aleman M.D. on 04/05/2024. The pathology report showed chronic calculus cholecystitis and his operative report reported localized significant inflammatory process and questionable mass. The patient has had development of jaundice with some darkened urine and at least 1 acholic stool. He reports no fever or chills. On admission, his labs showed white blood cell count of 3.7 which is up to 8.9 today. His hemoglobin/hematocrit are about the same (10.2 and 30.7). Total bilirubin on admission was 5.6 and is up to 6.8 today with direct bilirubin of 5.5. On admission his lipase level was 3757 which is down to 462 today. His alkaline phosphatase is 315 today. Abdominal CAT scan at time of admission showed no evidence of bile duct dilation and the pancreas appeared to be normal in appearance. There was a development of pleural effusions and some anasarca and some associated ascites. ERCP is performed for clearance of the biliary tree secondary to presumptive choledocholithiasis with obstruction and biliary pancreatitis. Procedure: Prior to the procedure, a history and physical exam was performed, and patient's medications and allergies were reviewed. The risks, benefits and alternatives of the sedation and procedure were discussed with the patient. All questions were answered and informed consent was obtained. The patient was brought to the fluoroscopic radiology room. Patient identification and proposed procedure were verified by the physician and the nurse. The patient was placed in a swimmer's position between left lateral decubitus and prone position and the scope was passed under direct vision. Throughout the procedure, the patient's blood pressure, pulse, and oxygen saturations were monitored continuously. The ERCP was accomplished without difficulty. The patient tolerated the procedure well. Findings: The duodenoscope was passed directly into the upper esophagus and advanced to the second portion of the duodenum. The esophagus, stomach and duodenum were normal. The ampulla was well-visualized. The common bile duct was selectively cannulated and a guidewire was placed deeper into the intrahepatic biliary tree. A cholangiogram was performed and the common bile duct measured approximately 10 mm with two 10 x 12 mm filling defects within the common bile duct. There was normal filling of the intrahepatic biliary system. The cystic duct clips were approximately 10 mm from the CBD and there was no long cystic duct stump and no bile duct leak. After confirmation of the CBD stones, a generous 11 to 12 mm sphincterotomy was performed. Because there was some smooth tapering in the distal duct, a TTS hydrostatic balloon (6 mm) was dilated to create wider channel?sphincteroplasty. Initially, there was some minor purulent bile drainage. A 10 to 12 mm sweeping balloon was placed proximally into the biliary system. Initially, the larger distal stone was swept into the duodenum with a sweeping balloon and this was a brownish-yellow pigmented stone. The second sweep yielded the second stone that was similar size. 2 additional sweeps were performed and there was primarily minor biliary debris. After complete clearance of the common bile duct and biliary system, a balloon filled distal cholangiogram was performed and there were no other filling defects identified throughout the biliary system and there was decompression of the biliary tree. There was no leak at the cystic duct. The pancreatic duct was not cannulated intentionally. Impression: 1. Choledocholithiasis (2 yellowish-brown pigmented 10 x 12 mm common bile duct stones) status post biliary clearance with minor biliary purulence (probable early cholangitis) Plan: I will discuss the findings with the patient and family and discussed with general surgery (Montez Crocker MD). Would begin clear liquids today and advance in the a.m. with anticipated discharge tomorrow. I would allow pancreatitis to resolve and make sure he is stable from cardiovascular standpoint.
--- NOTE | 2024-05-18 13:15 | EXP.ANES.CKL ---
[facility] Disclaimer: The information contained in this section may have been updated after the patient was seen, as this information can be updated by other users. Medical History (HFpEF) heart failure with preserved ejection fraction Diastolic dysfunction Hyperbilirubinemia Ascites Pleural effusion Choledocholithiasis Pancreatitis Dehydration Hyperlipidemia Coronary artery disease Abnormal ECG Abnormal findings on diagnostic imaging of heart and coronary circulation Renal insufficiency Hypertension Surgical History History of colonoscopy H/O shoulder surgery Family History Mother Diabetes Brother Diabetes Sister Diabetes Social History Smoking Status: Never smoker alcohol intake: never substance use type: denies use current occupational status: retired Travel in the last 8 weeks: None household members: none housing: house lives independently: Yes marital status: education level: college prison: No caffeine: Yes special elmer needs: No agree to transfusion: No do you feel safe at home: Yes victim of physical abuse: No victim of emotional abuse: No victim of sexual abuse: No would you like helpful sources: No Have you lived/traveled outside [place] in past 30 days?: No Contact w/someone who lives/traveled outside [place] past 30 days?: No Exposure to someone with infectious disease in past 14 days?: No Do you have a fever (greater than 100.4 F or 38 C)?: No Have you tested positive for COVID-19: No Exposed to someone with COVID-19 in past 14 days?: No Do you have a sore throat?: No Do you have a cough?: No Do you have any weakness?: No Do you have any diarrhea?: No Are you experiencing any unusual bleeding?: No Do you have any muscle aches/pain?: No Do you have any abdominal pain?: Yes Are you experiencing loss of taste or smell?: No [facility] Anesthesia Checklist Patient Identification Patient Identification: Arm Band and Verbal (Name & ) Structural Data Admitted From: Inpatient Planned Operative Procedure/s: ERCP Consent for Planned Operative Procedure(s) Verified: Yes Verified Documents: Surgical Consent, History and Physical and Cardiac Clearance NPO Status Verified Time NPO: 00:00 Chart Verification Results Verified: CBC, BMP and ECG Additional verifications Anesthesia Reactions: No Hx Blood Transfusions: No Airway Assessment Mallampati Score:: Class II C-Spine Mobility Assessed: Yes TMJ Mobility Assessed: Yes Dentition: Good Dentition Neurological Assessment Level of Consciousness: Awake Hx Seizures: No Numbness or tingling in extremities: No Anesthesia Plan Anesthesia Risk discussed: Yes Anesthesia Plan: Verified ASA Class: III Anesthesia Type: General
--- NOTE | 2024-05-18 14:11 | P.PNANES_ITS ---
[facility] Anesthesia Record Part I Anesthesia Record I Intake, IV Amount: 600 Hydration: Adequate Estimated blood loss (mL): 0 Urine output (mL): 0 Blood Pressure: 120/61 SaO2: 98 Pulse Rate: 68 Airway Patency: Patent Respiratory Rate: 20 Temperature: 97.2 F Patient is:: Drowsy Stable to PACU at:: 14:08
--- NOTE | 2024-05-18 14:38 | SUR.PHASEI ---
1438- detailed [facility] 1440- pt in room under the care of janie durbin. S.
[2024-05-18 16:45] LABS: HIV Combo NEGATIVE (Negative)
[2024-05-19 03:43] VITALS: BP 120/68; PULSE 65; RESP 16; TEMP 36.4; O2SAT 99
[2024-05-19 04:00] VITALS: BMI 25.7
[2024-05-19 06:13] LABS: HCV Ab Non Reactive (Non Reactive)
[2024-05-19 07:49] LABS: Basophils % 0.2 % (0.1-2.0); Eosinophils % 0.1 % (0.1-12.0); Hematocrit 35.6 % (42.0-52.0); Hemoglobin 11.7 g/dL (14.1-18.0); Lymphocytes # 0.3 K/mm3 (0.7-4.5); Lymphocytes % 4.4 % (10-50); Mean Corpuscular HGB Conc 32.9 g/dL (31.8-35.4); Mean Corpuscular Hemoglobin 32.7 pg (27.0-31.2); Mean Corpuscular Volume 99.2 fl (80-94); Mean Platelet Volume 10.4 fl (7.4-10.4); Monocytes # 0.2 K/mm3 (0.1-1.0); Neutrophils # 7.2 K/mm3 (1.8-7.8); Neutrophils % 92.3 % (37.0-80.0); Platelet Count 186 K/mm3 (142-424); Red Blood Count 3.59 M/mm3 (4.60-6.20); Red Cell Distribution Width 14.3 % (11.5-17.5); White Blood Count 7.8 K/mm3 (4.8-10.8)
[2024-05-19 07:52] LABS: MANUAL DIFFERENTIAL MANUAL DIFFERENTIAL (MANUAL DIFF)
[2024-05-19 08:00] VITALS: BP 128/58; PULSE 63; RESP 18; TEMP 36.6; O2SAT 97
[2024-05-19 08:09] LABS: Chloride 107 mmol/L (98-107)
[2024-05-19 08:10] LABS: Magnesium 1.9 mg/dl (1.6-2.3); Potassium 4.1 mmoL/L (3.5-5.1); Sodium 139 mmol/L (136-145)
[2024-05-19 08:11] LABS: Amylase 84 U/L (30-110); Lipase 64 U/L (23-300)
[2024-05-19 08:12] LABS: Blood Urea Nitrogen 34 mg/dl (9-20); Creatinine Clearance Estimated 44 mL/min (50-200); Estimated Glomerular Filt Rate 48 ml/min (>60); GFR (African American) 58 ML/MIN (>60)
[2024-05-19 08:13] LABS: Alanine Aminotransferase 57 U/L (12-78); Albumin/Globulin Ratio 0.9 (1.1-1.8); Alkaline Phosphatase 261 U/L (38-126); Anion Gap 14.1 mEq/L (5-15); Aspartate Amino Transferase 47 U/L (17-59); Bilirubin,Total 4.5 mg/dl (0.2-1.3); Calcium 8.1 mg/dl (8.4-10.2); Carbon Dioxide 22 mmol/L (22.0-30.0); Globulin 3.2 g/dL (1.3-3.2); Glucose 112 mg/dl (74-100); Total Protein,Serum 6.2 g/dl (6.3-8.2)
--- NOTE | 2024-05-19 08:17 | EXP.ACUTE.PN ---
Subjective *Date: 05/19/24 *Time: 08:17 Medical Exam Vital signs and Labs for Last 24 Hours: Vital Signs Temp Pulse Pulse Resp BP BP Pulse Ox 05/19/24 06:58 05/19/24 05:00 05/19/24 03:43 97.5 F L 65 16 120/68 99 05/19/24 03:00 05/19/24 01:00 05/18/24 23:45 97.6 F 61 16 110/54 L 97 05/18/24 23:00 05/18/24 21:00 05/18/24 20:00 05/18/24 19:25 97.6 F 63 18 129/58 L 98 05/18/24 18:35 61 18 120/66 97 05/18/24 18:28 05/18/24 17:35 63 18 125/65 96 05/18/24 17:05 64 18 134/79 98 05/18/24 17:00 05/18/24 16:35 61 18 138/70 98 05/18/24 16:05 98.6 F 62 18 137/71 97 05/18/24 15:35 98.1 F 61 18 141/71 H 97 05/18/24 15:20 98.2 F 60 18 140/65 98 05/18/24 15:05 98.3 F 63 18 133/66 97 05/18/24 15:00 05/18/24 14:50 98.2 F 61 18 137/72 97 05/18/24 14:38 97.3 F L 65 20 127/66 99 05/18/24 14:28 97.2 F L 64 20 123/64 99 05/18/24 14:18 97.2 F L 65 20 123/61 99 05/18/24 14:12 97.2 F L 68 20 120/61 05/18/24 14:08 97.2 F L 67 20 120/61 99 05/18/24 13:00 05/18/24 11:00 05/18/24 09:00 O2 Del Method 05/19/24 06:58 Room Air 05/19/24 05:00 Room Air 05/19/24 03:43 Room Air 05/19/24 03:00 Room Air 05/19/24 01:00 Room Air 05/18/24 23:45 Room Air 05/18/24 23:00 Room Air 05/18/24 21:00 Room Air 05/18/24 20:00 Room Air 05/18/24 19:25 Room Air 05/18/24 18:35 Room Air 05/18/24 18:28 Room Air 05/18/24 17:35 Room Air 05/18/24 17:05 Room Air 05/18/24 17:00 Room Air 05/18/24 16:35 Room Air 05/18/24 16:05 Room Air 05/18/24 15:35 Room Air 05/18/24 15:20 Room Air 05/18/24 15:05 Room Air 05/18/24 15:00 Room Air 05/18/24 14:50 Room Air 05/18/24 14:38 Room Air 05/18/24 14:28 Room Air 05/18/24 14:18 Room Air 05/18/24 14:12 05/18/24 14:08 Room Air 05/18/24 13:00 Room Air 05/18/24 11:00 Room Air 05/18/24 09:00 Room Air Intake and Output 05/18/24 05/19/24 05/19/24 23:59 07:59 15:59 Other: Number of Unmeasured Voids 1 Weight 86.381 kg Patient Weight 05/19/24 23:59 Weight 86.381 kg Laboratory Results - last 24 hr 05/17/24 18:45: Hepatitis C Antibody Non reactive, HIV Ag/Ab Combo Qual Negative 05/18/24 05:35: Total Counted 100, Neutrophils % (Manual) 88 H, Lymphocytes % (Manual) 10, Monocytes % (Manual) 2, Platelet Estimate Normal, RBC Morphology Normal, Total Bilirubin 6.8 H, Direct Bilirubin 5.5 H, Conjugated Bilirubin 3.6 H, Indirect Bilirubin 1.3 H, Unconjugated Bilirubin 1.3 H, AST 60 H, ALT 71, Alkaline Phosphatase 315 H, Total Protein 6.4, Albumin 3.2 L, Lipase 462 H 05/19/24 06:46: WBC 7.8, RBC 3.59 L, Hgb 11.7 L, Hct 35.6 L, MCV 99.2 H, MCH 32.7 H, MCHC 32.9, RDW 14.3, Plt Count 186 D, MPV 10.4, Neut % (Auto) 92.3 H, Lymph % (Auto) 4.4 L, [place] % (Auto) 3.0, Eos % (Auto) 0.1, Baso % (Auto) 0.2, Neut # (Auto) 7.2, Lymph # (Auto) 0.3 L, [place] # (Auto) 0.2, Eos # (Auto) 0.0, Baso # (Auto) 0.0, Sodium 139, Potassium 4.1, Chloride 107, Carbon Dioxide 22, Anion Gap 14.1, BUN 34 H, Creatinine 1.40 H, Estimated Creat Clear 44, Estimated GFR 48 L, Est GFR ( Amer) 58 L, Glucose 112 H, Calcium 8.1 L, Magnesium 1.9 D, Total Bilirubin 4.5 H, AST 47, ALT 57, Alkaline Phosphatase 261 H, Total Protein 6.2 L, Albumin 3.0 L, Globulin 3.2, Albumin/Globulin Ratio 0.9 L, Amylase 84, Lipase 64 I & O for Labs for Last 24 Hours: Intake & Output 05/16/24 05/17/24 05/18/24 05/19/24 23:59 23:59 23:59 23:59 Intake Total 950 / 950 Output Total 0 / 0 Balance 950 / 950 Weight 83.733 kg 83.733 kg 86.381 kg Microbiology Reports for the Last 24 Hours: Microbiology 05/18/24 05:35 Blood Blood Culture - Preliminary NO GROWTH AFTER 24 HOURS 05/18/24 05:35 Blood Blood Culture - Preliminary NO GROWTH AFTER 24 HOURS Assessment and Plan *Assessment and plan (1) Choledocholithiasis: Status: Acute Category: Medical Code(s): K80.50 - Calculus of bile duct without cholangitis or cholecystitis without obstruction (2) Pancreatitis: Status: Acute Qualifiers: Acute pancreatitis complication: unspecified Chronicity: acute Pancreatitis type: unspecified pancreatitis type Qualified Code(s): K85.90 - Acute pancreatitis without necrosis or infection, unspecified Category: Medical Code(s): K85.90 - Acute pancreatitis without necrosis or infection, unspecified (3) Postoperative abdominal pain: Status: Acute Category: Medical Code(s): R10.9 - Unspecified abdominal pain; G89.18 - Other acute postprocedural pain (4) Pleural effusion: Status: Acute Category: Medical Code(s): J90 - Pleural effusion, not elsewhere classified (5) Dehydration: Status: Acute Category: Medical Code(s): E86.0 - Dehydration (6) Ascites: Status: Acute Qualifiers: Ascites type: other type Qualified Code(s): R18.8 - Other ascites Category: Medical Code(s): R18.8 - Other ascites (7) Hyperbilirubinemia: Status: Acute Category: Medical Code(s): E80.6 - Other disorders of bilirubin metabolism (8) Hyperlipidemia: Status: Acute Qualifiers: Hyperlipidemia type: mixed hyperlipidemia Qualified Code(s): E78.2 - Mixed hyperlipidemia Category: Medical Code(s): E78.5 - Hyperlipidemia, unspecified (9) Coronary artery disease: Status: Acute Qualifiers: Coronary Disease-Associated Artery/Lesion type: [place] artery [place] vs. transplanted heart: [place] heart Associated angina: without angina Qualified Code(s): I25.10 - Atherosclerotic heart disease of [place] coronary artery without angina pectoris Category: Medical Code(s): I25.10 - Atherosclerotic heart disease of [place] coronary artery without angina pectoris Plan Patient presents to hospital complaining of abdominal discomfort, nausea, vomiting over the last 2.5 days. Patient describes abdominal discomfort as 8/10, constant, sharp, focused in right upper quadrant/epigastric region, nonradiating, occurring with nausea/vomiting. Patient also admits to intermittent chills over the past few days. Denies fevers, chest pain, shortness of breath, cough, ataxia, blurry vision, headaches. Patient on bisoprolol and verapamil as outpatient, but not sure why. Patient denies any knowledge of previous heart issues. CT abdomen/pelvis shows signs of ascites, and pleural effusions. WBC 3.7, total bili 5.6, GGT 226, AST 72, alk phos 329, albumin 3.3, lipase 3757. Patient admitted for acute choledocholithiasis versus acute pancreatitis evaluation. GI and surgery consulted and assisting with care. Plan for ERCP today. Problems addressed as follows: Acute pancreatitis due to acute choledocholithiasis: ? Patient underwent cholecystectomy [address] abdomen/pelvis shows abdominal wall inflammation and pleural effusions; possibly indicative of undiagnosed CHF. -Patient taken for ERCP today, reviewed case with surgery and GI. Found to have common bile duct stones. Removed along with performance of sphincterotomy. Will initiate sips and chips tonight. If tolerates well, advance to clears tomorrow. -Lipase improved to 462 today, liver enzymes still abnormal with bilirubin of 6.8, AST and ALT 60 and 71 respectively. Alkaline phosphatase 315. -White count normal at 8.9. Low concern for infection. Discontinue Zosyn after 2 doses. -Culture still pending -Repeat CBC, CMP, magnesium, lipase and amylase ordered for the morning. Dehydration secondary to acute pancreatitis: ? Cautious rehydration as noted above Possible CHF diastolic heart failure: Hypertension CAD ?Reviewed 03/14 echocardiogram normal with grade 2 diastolic dysfunction and mild aortic stenosis. Patient does not appear to be in decompensated heart failure. - Cautious fluid management throughout hospitalization. repeat echocardiogram: Echo with elevated RVSP. EF preserved at 55% -Hold HCTZ. Blood pressure improved today at 127/66. Initiate Lasix 40 mg IV daily. -Resume aspirin after ERCP PPx: Lovenox 40 mg subcu daily CODE STATUS full FEN: Sips and chips, if does well, advance to clears tomorrow
[2024-05-19] MEDS: ENOXAPARIN 40MG/0.4ML SYRINGE 40 MG SUBCUT (08:28)
[2024-05-19] MEDS: FUROSEMIDE 40MG/4ML VIAL 40 MG IV (08:28)
--- NOTE | 2024-05-19 09:13 | EXP.SURG.PN ---
Subjective Narrative: Patient feels much better. No abdominal pain. Tolerating clear liquid diet. Exam Data for Last 24 hours Vital signs and Labs for Last 24 Hours: Temp Pulse Resp BP Pulse Ox O2 Del Method 97.5 F L 65 16 120/68 99 Room Air 05/19/24 03:43 05/19/24 03:43 05/19/24 03:43 05/19/24 03:43 05/19/24 03:43 05/19/24 06:58 Laboratory Results - last 24 hr 05/17/24 18:45: Hepatitis C Antibody Non reactive, HIV Ag/Ab Combo Qual Negative 05/19/24 06:46: WBC 7.8, RBC 3.59 L, Hgb 11.7 L, Hct 35.6 L, MCV 99.2 H, MCH 32.7 H, MCHC 32.9, RDW 14.3, Plt Count 186 D, MPV 10.4, Neut % (Auto) 92.3 H, Lymph % (Auto) 4.4 L, [place] % (Auto) 3.0, Eos % (Auto) 0.1, Baso % (Auto) 0.2, Neut # (Auto) 7.2, Lymph # (Auto) 0.3 L, [place] # (Auto) 0.2, Eos # (Auto) 0.0, Baso # (Auto) 0.0, Sodium 139, Potassium 4.1, Chloride 107, Carbon Dioxide 22, Anion Gap 14.1, BUN 34 H, Creatinine 1.40 H, Estimated Creat Clear 44, Estimated GFR 48 L, Est GFR ( Amer) 58 L, Glucose 112 H, Calcium 8.1 L, Magnesium 1.9 D, Total Bilirubin 4.5 H, AST 47, ALT 57, Alkaline Phosphatase 261 H, Total Protein 6.2 L, Albumin 3.0 L, Globulin 3.2, Albumin/Globulin Ratio 0.9 L, Amylase 84, Lipase 64 I & O for Last 24 hours: Intake & Output 05/16/24 05/17/24 05/18/24 05/19/24 11:59 11:59 11:59 11:59 Intake Total 350 / 350 600 / 600 Output Total 0 / 0 Balance 350 / 350 600 / 600 Weight 184 lb 9.594 oz 190 lb 7 oz Microbiology Reports for the Last 24 Hours: Microbiology 05/18/24 05:35 Blood Blood Culture - Preliminary NO GROWTH AFTER 24 HOURS 05/18/24 05:35 Blood Blood Culture - Preliminary NO GROWTH AFTER 24 HOURS *Routine Abdominal Exam Abdominal: Present soft; Absent tenderness Progress Note: A&P Assessment and plan (1) Choledocholithiasis: Status: Acute Assessment and plan: LFTs improving after ERCP with stone extraction. Pancreatic enzymes improving. May slowly advance diet. (2) Pancreatitis: Status: Acute (3) Postoperative abdominal pain: Status: Acute (4) Pleural effusion: Status: Acute (5) Dehydration: Status: Acute (6) Ascites: Status: Acute (7) Hyperbilirubinemia: Status: Acute (8) Hyperlipidemia: Status: Acute (9) Coronary artery disease: Status: Acute
[2024-05-19 10:12] LABS: Lymphocytes % 5 % (10-50); Monocytes % 1 % (2-9); Neutrophils % 94 % (42-76); Platelet Estimate Normal; RBC Morphology Normal; Total Cells Counted 100
--- NOTE | 2024-05-19 11:35 | P.DS_ITS ---
General Admission date:: 05/17/24 Discharge date: 05/19/24 HPI HPI HPI: Patient is an 88-year-old male who underwent laparoscopic cholecystectomy with Dr. Aleman on 04/05/2024 at which time he was found to have contraction and hardening of the gallbladder wall with inflammatory mass to the right lateral margin of the apparent cystic duct and node of [place]. There was some profound inflammation. There is also the possibility of remaining gallbladder tissue (possible partial cholecystectomy) noted. He had followed up postoperatively and was noted to have slight elevation of bilirubin of 2.0 on 04/11/2024, however this normalized with subsequent blood work. He presented to the emergency department on 05/17/2024 with 2-1/2-day history of abdominal discomfort rated as an 8 out of 10 described as constant, sharp, and focused in the right upper quadrant and epigastric region. He had associated nausea and vomiting with some chills. He underwent evaluation in the emergency department which reveals kale l white blood cell count. Bilirubin of 5.6, GGT 226, AST 72, alkaline phosphatase 329, lipase 3757. He underwent CT scan which reveals anasarca, ascites, interstitial edema. Discussion was held with gastroenterology for possible ERCP. He was admitted for inpatient management for ERCP. Gastroenterology consulted general surgery due to ascites, jaundice, and biliary pancreatitis. After cholecystectomy, the patient did have a lot of clinical improvement but over the last several days has had pain across the upper abdomen especially on the right side. He has noted darkened urine and at least 1 acholic stool. He reports no fever but has developed icterus and jaundice. Hospital Course Hospital Course Hospital Course: Patient presents to hospital complaining of abdominal discomfort, nausea, vomiting over the last 2.5 days. Patient describes abdominal discomfort as 8/10, constant, sharp, focused in right upper quadrant/epigastric region, nonradiating, occurring with nausea/vomiting. Patient also admits to intermittent chills over the past few days. Denies fevers, chest pain, shor tness of breath, cough, ataxia, blurry vision, headaches. Patient on bisoprolol and verapamil as outpatient, but not sure why. Patient denies any knowledge of previous heart issues. CT abdomen/pelvis shows signs of ascites, and pleural effusions. WBC 3.7, total bili 5.6, GGT 226, AST 72, alk phos 329, albumin 3.3, lipase 3757. Patient admitted for acute choledocholithiasis versus acute pancreatitis evaluation. GI and surgery consulted and assisting with care. Patient was taken for ERCP. Found to have common bile duct stone that was removed along with performance of sphincterotomy. Tolerated procedure well. Symptoms resolved with abdominal pain. Able to advance diet. Patient tolerating liquids but having significant improvement clinically in symptoms. Adamant about going home before advancing to regular diet. States he has things he has to take care of. While I expressed my concern that it was not the best plan and he is still at risk of pain and I would like to evaluate for tolerance of oral nutrition prior to discharge home, patient will discharge today as his white count is normal, liver function showing some improvement, and he is with more or less no abdominal pain today. Problems addressed as follows: Acute pancreatitis due to acute choledocholithiasis: ? Patient underwent cholecystectomy [address] abdomen/pelvis shows abdominal wall inflammation and pleural effusions; possibly indicative of undiagnosed CHF. Patient presented with significant abdominal pain. Found to have pancreatitis with severe elevation of lipase and elevation of liver enzym es. GI consulted, taken for ERCP Found to have common bile duct stones. Removed along with performance of sphincterotomy. Initiated on sips and chips. Advance to clears on the morning of discharge. Patient was feeling better however and did not want to wait for further advancement of diet. Lipase normalized from severe elevation in the thousands on admission. Bilirubin decreased from 6.8-4.5. AST, ALT, alkaline phosphatase improving but not quite normal. White count normal. Low concern for infection. Counseled patient on symptoms to expect as he advance his diet. 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 Discharged in stable condition after much discussion. Dehydration secondary to acute pancreatitis: IV fluids initially. Kidney function with some improvement. Would benefit from repeat labs and follow-up with PCP. Possible CHF diastolic heart failure: Hypertension CAD ?Reviewed 03/14 echocardiogram normal with grade 2 diastolic dysfunction and mild aortic stenosis. Patient does not appear to be in decompensated heart failure. Cautious fluid management throughout hospitalization. repeat echocardiogram: Echo with elevated RVSP. EF preserved at 55%. Hold HCTZ. Blood pressure improved today at 127/66. Initiate Lasix 40 mg IV daily. Resume aspirin after ERCP Patient adamant about going home. Extensive discussion about risks and benefits. Will have patient follow-up closely with labs on Tuesday. Is he is feeling better with no abdominal pain, recommend advancing diet at home with low-fat low-cholesterol. Total time spent on discharge 32 minutes in counseling, documentation, chart review, and direct care with patient. Exam Data for Last 24 hours Vital signs and Labs for Last 24 Hours: Temp Pulse Resp BP Pulse Ox O2 Del Method 97.8 F 63 18 128/58 L 97 Room Air 05/19/24 08:00 05/19/24 08:00 05/19/24 08:00 05/19/24 08:00 05/19/24 08:00 05/19/24 11:00 Laboratory Results - last 24 hr 05/17/24 18:45: Hepatitis C Antibody Non reactive, HIV Ag/Ab Combo Qual Negative 05/19/24 06:46: WBC 7.8, RBC 3.59 L, Hgb 11.7 L, Hct 35.6 L, MCV 99.2 H, MCH 32.7 H, MCHC 32.9, RDW 14.3, Plt Count 186 D, MPV 10.4, Neut % (Auto) 92.3 H, Lymph % (Auto) 4.4 L, [place] % (Auto) 3.0, Eos % (Auto) 0.1, Baso % (Auto) 0.2, Neut # (Auto) 7.2, Lymph # (Auto) 0.3 L, [place] # (Auto) 0.2, Eos # (Auto) 0.0, Baso # (Auto) 0.0, Total Counted 100, Neutrophils % (Manual) 94 H, Lymphocytes % (Manual) 5 L, Monocytes % (Manual) 1 L, Platelet Estimate Normal, RBC Morphology Normal, Sodium 139, Potassium 4.1, Chloride 107, Carbon Dioxide 22, Anion Gap 14.1, BUN 34 H, Creatinine 1.40 H, Estimated Creat Clear 44, Estimated GFR 48 L, Est GFR ( Amer) 58 L, Glucose 112 H, Calcium 8.1 L, Magnesium 1.9 D, Total Bilirubin 4.5 H, AST 47, ALT 57, Alkaline Phosphatase 261 H, Total Protein 6.2 L, Albumin 3.0 L, Globulin 3.2, Albumin/Globulin Ratio 0.9 L, Amylase 84, Lipase 64 I & O for Last 24 hours: Intake & Output 05/16/24 05/17/24 05/18/24 05/19/24 23:59 23:59 23:59 23:59 Intake Total 950 / 950 540 / 540 Output Total 0 / 0 Balance 950 / 950 540 / 540 Weight 83.733 kg 83.733 kg 86.381 kg Microbiology Reports for the Last 24 Hours: Microbiology 05/18/24 05:35 Blood Blood Culture - Preliminary NO GROWTH AFTER 24 HOURS 05/18/24 05:35 Blood Blood Culture - Preliminary NO GROWTH AFTER 24 HOURS Constitutional Constitutional: no acute distress, average body habitus, chronically ill appearing and cooperative Comments: Cooperative but demanding discharge *Routine HEENT Exam Head: Present normocephalic Eye: Present EOMI and PERRL ENT: Present mucous membranes moist *Routine Neck Exam Neck: Present supple; Absent lymphadenopathy *Routine Respiratory Exam Respiratory: Present CTA bilaterally *Routine Cardiovascular Exam Cardiovascular: Present RRR *Routine Abdominal Exam Abdominal: Present soft, normoactive bowel sounds and tenderness (significant improvement in LUQ TTP) *Routine Rectal Exam Patient deferred: visual exam *Routine Exam Patient deferred: penile exam *Routine Extremities Exam Extremities: Absent cyanosis, clubbing or edema *Routine Skin Exam Skin: Present warm; Absent rash *Routine Neurological Exam Neurological: Present alert, oriented X3 and moving all extremities; Absent altered mental status Results Data Completed and Pending Labs on day of discharge: Labs from last 24 hours 05/19/24 05/17/24 06:46 18:45 WBC 7.8 RBC 3.59 L Hgb 11.7 L Hct 35.6 L MCV 99.2 H MCH 32.7 H MCHC 32.9 RDW 14.3 Plt Count 186 D MPV 10.4 Neut % (Auto) 92.3 H Lymph % (Auto) 4.4 L [place] % (Auto) 3.0 Eos % (Auto) 0.1 Baso % (Auto) 0.2 Neut # (Auto) 7.2 Lymph # (Auto) 0.3 L [place] # (Auto) 0.2 Eos # (Auto) 0.0 Baso # (Auto) 0.0 Total Counted 100 Neutrophils % (Manual) 94 H Lymphocytes % (Manual) 5 L Monocytes % (Manual) 1 L Platelet Estimate Normal RBC Morphology Normal Sodium 139 Potassium 4.1 Chloride 107 Carbon Dioxide 22 Anion Gap 14.1 BUN 34 H Creatinine 1.40 H Estimated Creat Clear 44 Estimated GFR 48 L Est GFR ( Amer) 58 L Glucose 112 H Calcium 8.1 L Magnesium 1.9 D Total Bilirubin 4.5 H AST 47 ALT 57 Alkaline Phosphatase 261 H Total Protein 6.2 L Albumin 3.0 L Globulin 3.2 Albumin/Globulin Ratio 0.9 L Amylase 84 Lipase 64 Hepatitis C Antibody Non reactive HIV Ag/Ab Combo Qual Negative Preliminary micro results at discharge 05/18/24 05:35 Blood Culture - Preliminary Blood NO GROWTH AFTER 24 HOURS 05/18/24 05:35 Blood Culture - Preliminary Blood NO GROWTH AFTER 24 HOURS DS: Diagnosis Discharge Diagnosis (1) Choledocholithiasis: Status: Acute Code(s): K80.50 - Calculus of bile duct without cholangitis or cholecystitis without obstruction (2) Pancreatitis: Status: Acute Code(s): K85.90 - Acute pancreatitis without necrosis or infection, unspecified Qualifiers: Acute pancreatitis complication: unspecified Chronicity: acute Pancreatitis type: unspecified pancreatitis type Qualified Code(s): K85.90 - Acute pancreatitis without necrosis or infection, unspecified (3) Postoperative abdominal pain: Status: Acute Code(s): R10.9 - Unspecified abdominal pain; G89.18 - Other acute postprocedural pain (4) Pleural effusion: Status: Acute Code(s): J90 - Pleural effusion, not elsewhere classified (5) Dehydration: Status: Acute Code(s): E86.0 - Dehydration (6) Ascites: Status: Acute Code(s): R18.8 - Other ascites Qualifiers: Ascites type: other type Qualified Code(s): R18.8 - Other ascites (7) Hyperbilirubinemia: Status: Acute Code(s): E80.6 - Other disorders of bilirubin metabolism (8) Hyperlipidemia: Status: Acute Code(s): E78.5 - Hyperlipidemia, unspecified Qualifiers: Hyperlipidemia type: mixed hyperlipidemia Qualified Code(s): E78.2 - Mixed hyperlipidemia (9) Coronary artery disease: Status: Acute Code(s): I25.10 - Atherosclerotic heart disease of [place] coronary artery without angina pectoris Qualifiers: Associated angina: without angina Coronary Disease-Associated A rtery/Lesion type: [place] artery [place] vs. transplanted heart: [place] heart Qualified Code(s): I25.10 - Atherosclerotic heart disease of [place] coronary artery without angina pectoris Meds Home Medications and Allergies Home Medications ?Medication ?Instructions ?Recorded ?Confirmed ?Type aspirin 81 mg tablet,delayed 81 mg PO DAILY #30 tabs 03/22/24 05/17/24 Rx release (Adult Low Dose Aspirin) bisoprolol fumarate 5 mg tablet 5 mg PO DAILY 05/18/24 05/18/24 History verapamil 240 mg 24 hr 240 mg PO DAILY 05/18/24 05/18/24 History capsule,extended release hydrochlorothiazide 25 mg tablet 50 mg (2 x 25 mg) PO DAILY 30 days 05/19/24 Rx #60 tabs New Prescriptions to Start Prescriptions: Ruiz Flores Allergies Allergy/AdvReac Type Severity Reaction Status Date / Time No Known Allergies Allergy Verified 05/10/24 14:33 Discharge Plan Disposition Patient Disposition: Home, Self-Care Condition: Fair Discharge Order Discharge Orders: Discharge Order (Routine); Ordered 05/19/24 Ordered By: Ruiz Roberto Follow up Plan Follow up with: Kofi Garcia II, MD [Staff Physician] - Enter time for follow up (2 weeks) Dada Chavez MD [Primary Care Provider] - Enter time for follow up (1 week) Juan Aleman MD [Staff Physician] - Enter time for follow up (5 days) Prescriptions/Medication Reconciliation: Continued aspirin [Adult Low Dose Aspirin] 81 mg tablet,delayed release (DR/EC) 81 mg PO DAILY Qty: 30 5RF bisoprolol fumarate 5 mg tablet 5 mg PO DAILY Patient Comments: TAKE 1 TABLET 1 TIME EACH DAY verapamil 240 mg capsule,ext rel. pellets 24 hr 240 mg PO DAILY Patient Comments: TAKE 1 CAPSULE 1 TIME EACH DAY Changed hydrochlorothiazide 25 mg tablet 50 mg PO DAILY 30 Days Qty: 60 0RF Other Ambulatory Orders: Comprehensive Metabolic Panel (Routine) Timeframe: 2 Days Facility: [facility] - Location: Laboratory Ordered By: Ruiz Roberto Problem Reconciliation Problems Reviewed?: Yes Patient Discharge Instructions ACTIVITY: Continue current activity DIET: advance to your usual diet and low fat, low cholesterol Patient Instructions: DI for Pancreatitis, DI for Ascites, DI for Cholecystiti s, DI for Pleural Effusion Print Language: [place] Providers Primary Care Provider: Dada Chavez Admit Provider: Aníbal Boyce Attending Provider: Aníbal Boyce
--- NOTE | 2024-05-19 12:11 | PC.NURSE ---
UNABLE TO MAKE FOLLOW UP APPTS TODAY. PT INSTRUCTED TO CALL FOR FOLLOW UP TUESDAY. PHONE NUMBERS PROVIDED.
--- NOTE | 2024-05-21 09:14 | EXP.ANES.II ---
[facility] Anesthesia Record Part II Anesthesia Record Part II Discharge Time: 14:38 Destination: [facility] (OP Surgery) PACU nurse assessment reviewed?: Yes Patient Condition:: Good Anesthesia Complications:: None Swallowing reflex intact?: Yes Airway Patency: Patent Cyanosis?: No Blood Pressure: 127/66 SaO2: 99 Respiratory Rate: 20 Pulse Rate: 65 Temperature: 97.3 F Mental Status: Alert & Oriented Pain level:: 0 Nausea and/or vomitting:: None Intake, IV Amount: 0 Hydration: Adequate
[2024-05-21 09:15] VITALS: BP 127/66; PULSE 65; RESP 20; TEMP 36.3; O2SAT 99
--- NOTE | 2024-05-21 10:46 | SW/DCPLANNER ---
Spoke with patient on the phone. Patient stated that he is doing very well. Patient stated that he is feeling great. Patient was not able to get his medicine filled due to not having any money and asked if we could send it to [facility] where he is able to charge. Called Pharmacy and they are sending the order to [facility]. Patient stated that he has called and made his follow up appointments. Patient stated that he was very well taken care of here by all the staff. Patient stated that he has no concerns or questions at this time. Serina Nolasco
== END 2024-05-19 12:46 | disposition home or self-care (01) | DRG 444 ==
LOC: ER 20:21 → 2ND 20:35
PROVIDERS: Internal Medicine Gastroenterology; Admitting Provider Internal Medicine; Emergency Provider Student in an Organized Health Care Education/Training Program; PCP Family Medicine; Visit Provider Internal Medicine
PROC: 0F798ZZ Dilation of Common Bile Duct, Via Natural or Artificial Opening Endoscopic (ICD-10-PCS; principal; 2024-05-18 13:30)
DX: K80.50 Calculus of bile duct without cholangitis or cholecystitis without obstruction (principal); K85.90 Acute pancreatitis without necrosis or infection, unspecified; R18.8 Other ascites; I50.20 Unspecified systolic (congestive) heart failure; G89.18 Other acute postprocedural pain; E86.0 Dehydration; E80.6 Other disorders of bilirubin metabolism; E78.2 Mixed hyperlipidemia; I25.10 Atherosclerotic heart disease of native coronary artery without angina pectoris
CPT/HCPCS: 43277; 36415; 74177; 74330; 76000; 80048; 80053; 80076; 82150; 82977; 83690; 83735; 84145; 85007; 85025; 86803; 87040; 87389; 93306; 99291; J3490; C1726; C1889; J1100; J1650; J1940; J2270; J2405; J2543; J7030; Q9967

== ENCOUNTER 2024-05-23 10:11 | Outpatient (CLI) | payer MEDICARE, SELFPAY ==
[2024-05-23 17:07] LABS: Hematocrit 33.3 % (42.0-52.0); Hemoglobin 10.6 g/dL (14.1-18.0); Lymphocytes % 17.1 % (10-50); Mean Corpuscular HGB Conc 31.8 g/dL (31.8-35.4); Mean Corpuscular Hemoglobin 30.7 pg (27.0-31.2); Mean Corpuscular Volume 96.5 fl (80-94); Mean Platelet Volume 12.3 fl (7.4-10.4); Monocytes % 10.5 % (1.7-9.3); Neutrophils % 60.6 % (37.0-80.0); Platelet Count 193 K/mm3 (142-424); Red Blood Count 3.45 M/mm3 (4.60-6.20); Red Cell Distribution Width 13.8 % (11.5-17.5); White Blood Count 6.1 K/mm3 (4.8-10.8)
[2024-05-23 17:08] LABS: Basophils # 0.1 K/mm3 (0-0.2); Basophils % 0.8 % (0.1-2.0); Eosinophils % 0.7 % (0.1-12.0); Monocytes # 0.6 K/mm3 (0.1-1.0); Neutrophils # 3.7 K/mm3 (1.8-7.8)
[2024-05-23 17:37] LABS: Alanine Aminotransferase 42 U/L (12-78); Albumin Level 3.5 g/dl (3.5-5.0); Albumin/Globulin Ratio 1.1 (1.1-1.8); Alkaline Phosphatase 209 U/L (38-126); Amylase 67 U/L (30-110); Anion Gap 9.7 mEq/L (5-15); Aspartate Amino Transferase 42 U/L (17-59); Bilirubin,Direct 1.2 mg/dl (0.0-0.4); Bilirubin,Indirect 0.4 mg/dL (0.0-0.9); Bilirubin,Total 1.6 mg/dl (0.2-1.3); Blood Urea Nitrogen 25 mg/dl (9-20); Calcium 8.5 mg/dl (8.4-10.2); Carbon Dioxide 30 mmol/L (22.0-30.0); Chloride 99 mmol/L (98-107); Estimated Glomerular Filt Rate 63 ml/min (>60); GFR (African American) 76 ML/MIN (>60); Globulin 3.1 g/dL (1.3-3.2); Glucose 81 mg/dl (74-100); Lipase 232 U/L (23-300); Potassium 3.7 mmoL/L (3.5-5.1); Sodium 135 mmol/L (136-145); Total Protein,Serum 6.6 g/dl (6.3-8.2)
== END 2024-05-23 23:59 | disposition home or self-care (01) ==
LOC: LAB.DROPOF 05-24 12:11
PROVIDERS: PCP Family Medicine; Visit Provider Family Medicine
DX: R17 Unspecified jaundice (principal); K85.10 Biliary acute pancreatitis without necrosis or infection; R89.9 Unspecified abnormal finding in specimens from other organs, systems and tissues
CPT/HCPCS: 80053; 82150; 82248; 83690; 85025

== ENCOUNTER 2024-06-08 09:49 | Outpatient (CLI) | payer MEDICARE, SELFPAY ==
[2024-06-08 16:17] LABS: Basophils % 0.5 % (0.1-2.0); Eosinophils % 1.1 % (0.1-12.0); Hematocrit 32.4 % (42.0-52.0); Hemoglobin 10.6 g/dL (14.1-18.0); Lymphocytes # 1.1 K/mm3 (0.7-4.5); Lymphocytes % 30.4 % (10-50); Mean Corpuscular HGB Conc 32.7 g/dL (31.8-35.4); Mean Corpuscular Hemoglobin 32.1 pg (27.0-31.2); Mean Corpuscular Volume 98.2 fl (80-94); Mean Platelet Volume 12.2 fl (7.4-10.4); Monocytes # 0.5 K/mm3 (0.1-1.0); Monocytes % 12.3 % (1.7-9.3); Neutrophils % 55.2 % (37.0-80.0); Platelet Count 118 K/mm3 (142-424); Red Cell Distribution Width 13.9 % (11.5-17.5); White Blood Count 3.7 K/mm3 (4.8-10.8)
[2024-06-08 16:23] LABS: Albumin Level 3.4 g/dl (3.5-5.0); Chloride 102 mmol/L (98-107); Potassium 4.6 mmoL/L (3.5-5.1); Sodium 136 mmol/L (136-145)
[2024-06-08 16:26] LABS: Alanine Aminotransferase 19 U/L (12-78); Alkaline Phosphatase 167 U/L (38-126); Anion Gap 10.6 mEq/L (5-15); Aspartate Amino Transferase 47 U/L (17-59); Bilirubin,Total 1.2 mg/dl (0.2-1.3); Blood Urea Nitrogen 31 mg/dl (9-20); Calcium 8.5 mg/dl (8.4-10.2); Carbon Dioxide 28 mmol/L (22.0-30.0); Estimated Glomerular Filt Rate 52 ml/min (>60); GFR (African American) 63 ML/MIN (>60); Glucose 86 mg/dl (74-100)
[2024-06-08 16:58] LABS: Albumin/Globulin Ratio 1.1 (1.1-1.8); Globulin 3.1 g/dL (1.3-3.2); Total Protein,Serum 6.5 g/dl (6.3-8.2)
== END 2024-06-08 23:59 | disposition home or self-care (01) ==
LOC: LAB.DROPOF 06-09 08:59
PROVIDERS: PCP Family Medicine; Visit Provider Family Medicine
DX: K85.10 Biliary acute pancreatitis without necrosis or infection (principal); R17 Unspecified jaundice
CPT/HCPCS: 80053; 85025